=== PATIENT | male | born 1950 | race Caucasian/White ===

== ENCOUNTER 2016-08-28 23:55 | Inpatient (IN) | payer MEDICARE ==
[~2016-08-28] VITALS: Ht 172.7 cm; Wt 94.8 kg
[~2016-08-28 23:55] MED LIST: ASPI325T24 PO; CENTCHW3; FISH100020 PO
[2016-08-29] VITALS (23 sets, daily range): BP systolic 107–165; BP diastolic 61–84; PULSE 80–124; RESP 23–35; TEMP 98.2–99.3; O2SAT 72–99
[2016-08-29] MEDS ORDERED: AZITHROMYCIN INJ 500 MG in SODIUM CHLOR 0.9% 250 ML INJ 250 ML IV ONE (00:15)
[2016-08-29] MEDS ORDERED: SODIUM CHLOR 0.9% 1000 ML INJ 1,000 ML IV ONE (00:15)
[2016-08-29] MEDS ORDERED: cefTRIAXone INJ 1,000 MG in SODIUM CHLORIDE 0.9% INJ 100 ML IV ONE (00:15)
[2016-08-29] MEDS ORDERED: ASPI81CH CHEW (00:23)
[2016-08-29] MEDS ORDERED: LOVA20TA PO (00:23)
[2016-08-29] MEDS ORDERED: BUME0.5T PO (00:24)
--- NOTE | 2016-08-29 00:35 | PD ---
HPI Chief Complaint: Respiratory Distress Time Seen by Provider: 00:08 Travel History International Travel<30 days: No Contact w/Intl Traveler<30days: No Traveled to known affect area: No History of Present Illness HPI Patient is a 66-year-old male of CP, non-Hodgkin lymphoma, hypertension, hyperlipidemia, presents to emergency room from home for evaluation of acute urinary retention as well as shortness of breath. Patient reports that he has not urinated all day today, reports that his bladder is full, reports concerns for urinary retention. Patient reports that he has been feeling short of breath and has been coughing intermittently. Reports that he feels as if his symptoms are worse today. Patient reports that when he coughs, he brings up thick green sputum. Patient denies chest pain, reports no sick contacts. Patient reports that "my lungs are bad" - reports that he has hx of lung disease after he had chemotherapy tx for his NHL As per EMS, patient reports that when they first arrived on scene, patient's pulse ox was 60% on room air. Patient was given 125 mg of Solu-Medrol as well as to approach treatments, pulse ox upon arrival to the emergency room was 72% on room air. PFSH Past Medical History Hx Anticoagulant Therapy: Yes (PLAVIX) Cancer: Yes (HX.[id number]) Cerebral Palsy: Yes Musculoskeletal: Yes Pneumonia: Yes Social History Alcohol Use: Yes (RARE) Tobacco Use: No Substance Use: No Allergies-Medications (Allergen,Severity, Reaction): Coded Allergies: No Known Allergies (Verified , 08/29/16) Reported Meds & Prescriptions Reported Meds & Active Scripts Active Reported Bumetanide 0.5 Mg Tab 0.5 Mg PO BID Lovastatin 20 Mg Tab 20 Mg PO DAILY Aspirin 81 Mg Chew 81 Mg CHEW DAILY Review of Systems General / Constitutional: No: Fever Eyes: No: Visual changes HENT: No: Headaches Cardiovascular: No: Chest Pain or Discomfort Respiratory: Positive: Cough, Shortness of Breath, Wheezing Gastrointestinal: No: Abdominal Pain Genitourinary: Positive: Other (urinary retention), No: Dysuria Musculoskeletal: No: Pain Skin: No Rash Neurologic: No: Weakness Psychiatric: No: Depression Endocrine: No: Polydipsia Hematologic/Lymphatic: No: Easy Bruising Physical Exam Narrative GENERAL: Toxic appearing SKIN: Warm and dry. HEAD: Atraumatic. Normocephalic. EYES: Pupils equal and round. No scleral icterus. No injection or drainage. ENT: No nasal bleeding or discharge. Mucous membranes pink and moist. NECK: Trachea midline. No JVD. CARDIOVASCULAR: Tachycardic, No murmur appreciated. RESPIRATORY: Patient with increased accessory muscle use. Patient with rails to lung bases GASTROINTESTINAL: Abdomen soft, non-tender, nondistended. Hepatic and splenic margins not palpable. MUSCULOSKELETAL: No obvious deformities. No clubbing. No cyanosis. Patient with +3 edema to lower extremity as bilaterally NEUROLOGICAL: Awake and alert. No obvious cranial nerve deficits. Normal speech. PSYCHIATRIC: Appropriate mood and affect; insight and judgment normal. Data Data Last Documented VS Vital Signs Date Time Temp Pulse Resp B/P Pulse Ox O2 Delivery O2 Flow Rate FiO2 08/29/16 01:20 97 35 08/29/16 00:11 117 30 Non-Rebreather 15 08/29/16 00:03 98.2 165/81 Orders Complete Blood Count With Diff (08/29/16 00:08) Comprehensive Metabolic Panel (08/29/16 00:08) Prothrombin Time / Inr (Pt) (08/29/16 00:08) Act Partial Throm Time (Ptt) (08/29/16 00:08) Lactic Acid Sepsis Protocol (08/29/16 00:08) Magnesium (Mg) (08/29/16 00:08) Lipase (08/29/16 00:08) Ckmb (Isoenzyme) Profile (08/29/16 00:08) Troponin I (08/29/16 00:08) Urinalysis - C+S If Indicated (08/29/16 00:08) Influenzae A/B Antigen (08/29/16 00:08) Blood Culture (08/29/16 00:08) Chest, Single Ap (08/29/16 00:08) Arterial Blood Gas (Abg) (08/29/16 00:08) Blood Glucose (08/29/16 00:08) Ecg Monitoring (08/29/16 00:08) Iv Access Insert/Monitor (08/29/16 00:08) Oximetry (08/29/16 00:08) Oxygen Administration (08/29/16 00:08) Urinary Catheter Insert/Apply (08/29/16 00:08) Azithromycin Inj (Zithromax Inj) (08/29/16 00:15) Ceftriaxone Inj (Rocephin Inj) (08/29/16 00:15) Sodium Chlor 0.9% 1000 Ml Inj (Ns 1000 M (08/29/16 00:15) Blood Culture (08/29/16 00:10) Us Leg Venous Doppler Bilat (08/29/16 ) Ct Pulmonary Angiogram (08/29/16 00:29) Furosemide Inj (Lasix Inj) (08/29/16 01:15) B-Type Natriuretic Peptide (08/29/16 01:08) Resp Bipap / Cpap Non Invas Vt (08/29/16 ) Iohexol 350 Inj (Omnipaque 350 Inj) (08/29/16 01:58) Vital Signs (Adult) RAYMON.Q4H (08/29/16 02:32) Activity Bed Rest (08/29/16 02:32) Basic Metabolic Panel (Bmp) (08/29/16 08:00) Labs Laboratory Tests Test 08/29/16 08/29/16 00:00 00:50 White Blood Count 18.9 TH/MM3 Red Blood Count 6.24 MIL/MM3 Hemoglobin 12.2 GM/DL Hematocrit 40.7 % Mean Corpuscular Volume 65.2 FL Mean Corpuscular Hemoglobin 19.6 PG Mean Corpuscular Hemoglobin 30.1 % Concent Red Cell Distribution Width 18.9 % Platelet Count 300 TH/MM3 Mean Platelet Volume 8.5 FL Neutrophils (%) (Auto) 88.9 % Lymphocytes (%) (Auto) 5.0 % Monocytes (%) (Auto) 5.7 % Eosinophils (%) (Auto) 0.0 % Basophils (%) (Auto) 0.4 % Neutrophils # (Auto) 16.8 TH/MM3 Lymphocytes # (Auto) 0.9 TH/MM3 Monocytes # (Auto) 1.1 TH/MM3 Eosinophils # (Auto) 0.0 TH/MM3 Basophils # (Auto) 0.1 TH/MM3 CBC Comment AUTO DIFF Differential Comment AUTO DIFF CONFIRMED Platelet Estimate NORMAL Platelet Morphology Comment ENLARGED Acanthocytes OCC Prothrombin Time 13.3 SEC Prothromb Time International 1.2 RATIO Ratio Activated Partial 27.9 SEC Thromboplast Time Sodium Level 141 MEQ/L Potassium Level 3.6 MEQ/L Chloride Level 103 MEQ/L Carbon Dioxide Level 24.6 MEQ/L Anion Gap 13 MEQ/L Blood Urea Nitrogen 21 MG/DL Creatinine 1.21 MG/DL Estimat Glomerular Filtration 60 ML/MIN Rate Random Glucose 119 MG/DL Lactic Acid Level 2.7 mmol/L Calcium Level 8.9 MG/DL Magnesium Level 2.2 MG/DL Total Bilirubin 1.2 MG/DL Aspartate Amino Transf 9 U/L (AST/SGOT) Alanine Aminotransferase 20 U/L (ALT/SGPT) Alkaline Phosphatase 110 U/L Total Creatine Kinase 39 U/L Troponin I 0.04 NG/ML B-Type Natriuretic Peptide 471 PG/ML Total Protein 8.0 GM/DL Albumin 3.6 GM/DL Lipase 197 U/L Blood Gas Puncture Site RT BRACHIAL Blood Gas Patient Temperature 98.6 Blood Gas HCO3 23 mmol/L Blood Gas Base Excess -0.8 mmol/L Blood Gas Oxygen Saturation 68 % Arterial Blood pH 7.45 Arterial Blood Partial 34 mmHg Pressure CO2 Arterial Blood Partial 38 mmHG Pressure O2 Arterial Blood Oxygen Content 11.3 Vol % Arterial Blood 2.2 % Carboxyhemoglobin Arterial Blood Methemoglobin 0.7 % Blood Gas Hemoglobin 11.9 G/DL Oxygen Delivery Device ROOMAIR Blood Gas Inspired Oxygen 21 % MDM Medical Decision Making Medical Screen Exam Complete: Yes Emergency Medical Condition: Yes Interpretation(s) Vital Signs Date Time Temp Pulse Resp B/P Pulse Ox O2 Delivery O2 Flow Rate FiO2 08/29/16 00:11 117 30 100 Non-Rebreather 15 08/29/16 00:03 98.2 121 30 165/81 72 Differential Diagnosis Pneumonia, CHF, influenza, ACS, arrhythmia, PE, DVT, pneumothorax Narrative Course Patient is a 66-year-old male who was brought to the emergency room from home by [facility] for evaluation of shortness of breath with a pulse ox of 60% on room air as well as for evaluation of acute urinary retention. EMS reports the patient had been complaining of acute urinary retention for the past 2 days, she reports that he has not been able to urinate for the past day. Jenkins catheter ordered Patient with improved symptoms on BiPAP. Chest CHF versus infiltrates. Patient with most likely CHF, Lasix 80 mg order. CBC & BMP Diagram 08/29/16 00:00 Laboratory Tests Test 08/29/16 08/29/16 00:00 00:50 White Blood Count 18.9 TH/MM3 (4.0-11.0) Red Blood Count 6.24 MIL/MM3 (4.50-5.90) Hemoglobin 12.2 GM/DL (13.0-17.0) Hematocrit 40.7 % (39.0-51.0) Mean Corpuscular Volume 65.2 FL (80.0-100.0) Mean Corpuscular Hemoglobin 19.6 PG (27.0-34.0) Mean Corpuscular Hemoglobin 30.1 % Concent (32.0-36.0) Red Cell Distribution Width 18.9 % (11.6-17.2) Platelet Count 300 TH/MM3 (150-450) Mean Platelet Volume 8.5 FL (7.0-11.0) Neutrophils (%) (Auto) 88.9 % (16.0-70.0) Lymphocytes (%) (Auto) 5.0 % (9.0-44.0) Monocytes (%) (Auto) 5.7 % (0.0-8.0) Eosinophils (%) (Auto) 0.0 % (0.0-4.0) Basophils (%) (Auto) 0.4 % (0.0-2.0) Neutrophils # (Auto) 16.8 TH/MM3 (1.8-7.7) Lymphocytes # (Auto) 0.9 TH/MM3 (1.0-4.8) Monocytes # (Auto) 1.1 TH/MM3 (0-0.9) Eosinophils # (Auto) 0.0 TH/MM3 (0-0.4) Basophils # (Auto) 0.1 TH/MM3 (0-0.2) CBC Comment AUTO DIFF Differential Comment AUTO DIFF CONFIRMED Platelet Estimate NORMAL (NORMAL) Platelet Morphology Comment ENLARGED (NORMAL) Acanthocytes OCC (NORMAL) Prothrombin Time 13.3 SEC (9.8-11.6) Prothromb Time International 1.2 RATIO Ratio Activated Partial 27.9 SEC Thromboplast Time (24.3-30.1) Sodium Level 141 MEQ/L (136-145) Potassium Level 3.6 MEQ/L (3.5-5.1) Chloride Level 103 MEQ/L (98-107) Carbon Dioxide Level 24.6 MEQ/L (21.0-32.0) Anion Gap 13 MEQ/L (5-15) Blood Urea Nitrogen 21 MG/DL (7-18) Creatinine 1.21 MG/DL (0.60-1.30) Estimat Glomerular Filtration 60 ML/MIN (>89) Rate Random Glucose 119 MG/DL (74-106) Lactic Acid Level 2.7 mmol/L (0.4-2.0) Calcium Level 8.9 MG/DL (8.5-10.1) Magnesium Level 2.2 MG/DL (1.5-2.5) Total Bilirubin 1.2 MG/DL (0.2-1.0) Aspartate Amino Transf 9 U/L (15-37) (AST/SGOT) Alanine Aminotransferase 20 U/L (12-78) (ALT/SGPT) Alkaline Phosphatase 110 U/L (45-117) Total Creatine Kinase 39 U/L (39-308) Troponin I 0.04 NG/ML (0.02-0.05) B-Type Natriuretic Peptide 471 PG/ML (0-100) Total Protein 8.0 GM/DL (6.4-8.2) Albumin 3.6 GM/DL (3.4-5.0) Lipase 197 U/L (73-393) Blood Gas Puncture Site RT BRACHIAL Blood Gas Patient Temperature 98.6 Blood Gas HCO3 23 mmol/L (22-26) Blood Gas Base Excess -0.8 mmol/L (-2-2) Blood Gas Oxygen Saturation 68 % (90-100) Arterial Blood pH 7.45 (7.380-7.420) Arterial Blood Partial 34 mmHg (38-42) Pressure CO2 Arterial Blood Partial 38 mmHG Pressure O2 (61-120) Arterial Blood Oxygen Content 11.3 Vol % (12.0-20.0) Arterial Blood 2.2 % (0-4) Carboxyhemoglobin Arterial Blood Methemoglobin 0.7 % (0-2) Blood Gas Hemoglobin 11.9 G/DL (12.0-16.0) Oxygen Delivery Device ROOMAIR Blood Gas Inspired Oxygen 21 % Microbiology Date/Time Procedure Status Source Growth 08/29/16 00:00 Aerobic Blood Culture Received Blood Peripheral Pending 08/29/16 00:00 Anaerobic Blood Culture Received Blood Peripheral Pending 08/29/16 00:10 Aerobic Blood Culture Received Blood Peripheral Pending 08/29/16 00:10 Anaerobic Blood Culture Received Blood Peripheral Pending 08/29/16 00:30 Influenza Types A,B Antigen ([facility]) - Final Complete Nasal Aspirate NEGATIVE FOR FLU A AND B ANTIGEN.... Last Impressions Chest X-Ray 08/29/16 0008 Signed Impressions: Service Date/Time: Monday, August 29, 2016 00:15 - CONCLUSION: 1. Bilateral airspace consolidation especially basilar and perihilar. Differential diagnosis includes pneumonia and edema. No prior study for comparison. Hawk Roe MD Lower Extremity Ultrasound 08/29/16 0000 Signed Impressions: Service Date/Time: Monday, August 29, 2016 01:11 - CONCLUSION: Normal examination. Hawk Roe MD Patient CT of the chest shows no pulmonary embolism, he has have moderate severe pulmonary fibrosis, characteristic of decidual pneumonitis. I did review all findings with patient in detail. I discussed need for admission to the hospital. Patient is feeling much better on the BiPAP. Case is reviewed with Dr. mcneil who accepts patient to service. Critical Care Narrative Aggregate critical care time was 45 minutes. Time to perform other separately billable procedures was not included in the critical care time. My time did not include minutes spent treating any other patients simultaneously or on activities that did not directly contribute to the patient's treatment. The services I provided to this patient were to treat and/or prevent clinically significant deterioration that could result in: , decompensation, deterioration I provided critical care services requiring my management, as noted below: Chart data review, documentation time, medication orders and management, vital sign assessments/reviewing monitor data, ordering and reviewing lab tests, ordering and interpreting/reviewing x-rays and diagnostic studies, care of the patient and discussion of the patient with the admitting physicians. Diagnosis Primary Impression: Hypoxia Additional Impressions: Sepsis Qualified Code: A41.9 - Sepsis, due to unspecified organism Acute exacerbation of CHF (congestive heart failure) Qualified Code: I50.9 - Acute on chronic congestive heart failure, unspecified congestive heart failure type Admitting Information Admitting Physician Requests: Admit Patricia Mcdermott DO Aug 29, 2016 00:35
[2016-08-29 00:41] LABS: AUTOMATED NEUTROPHIL # 16.8 TH/MM3 (1.8-7.7); BASOPHIL # 0.1 TH/MM3 (0-0.2); BASOPHIL % 0.4 % (0.0-2.0); HEMATOCRIT 40.7 % (39.0-51.0); LYMPHOCYTE # 0.9 TH/MM3 (1.0-4.8); MEAN CELL VOLUME 65.2 FL (80.0-100.0); MEAN CORPUSCULAR HEMOGLOBIN 19.6 PG (27.0-34.0); MEAN CORPUSCULAR HGB CONC 30.1 % (32.0-36.0); MONO % 5.7 % (0.0-8.0); NEUT % 88.9 % (16.0-70.0); PLATELET COUNT 300 TH/MM3 (150-450); RED BLOOD COUNT 6.24 MIL/MM3 (4.50-5.90); RED CELL DISTRIBUTION WIDTH 18.9 % (11.6-17.2); WHITE BLOOD COUNT 18.9 TH/MM3 (4.0-11.0)
[2016-08-29 00:43] LABS: HEMO FLAGS AUTO DIFF
--- NOTE | 2016-08-29 00:48 | RADRPT ---
EXAM DATE/TIME: 08/29/2016 00:15 [facility] COMPARISON: No previous studies available for comparison. INDICATIONS : Shortness of breath. MEDICAL HISTORY : Cerebral palsy. Hodgkins lymphoma. SURGICAL HISTORY : None. ENCOUNTER: Initial ACUITY: 1 day PAIN SCORE: 0/10 LOCATION: Bilateral chest FINDINGS: No prior study for comparison. There is bilateral airspace disease status in the perihilar regions an d lung bases. Heart size appears enlarged. No pneumothorax. Probable small effusions. CONCLUSION: 1. Bilateral airspace consolidation especially basilar and perihilar. Differential diagnosis includes pneumonia and edema. No prior study for comparison. Hawk Roe MD on August 29, 2016 at 0:45 Board Certified Radiologist. This report was verified electronically.
[2016-08-29 00:54] LABS: APTT (PATIENT) 27.9 SEC (24.3-30.1); INTERNATIONAL NORMALIZED RATIO 1.2 RATIO; PROTHROMBIN TIME - PATIENT 13.3 SEC (9.8-11.6)
[2016-08-29 00:58] LABS: ALT (GPT) 20 U/L (12-78); ANION GAP 13 MEQ/L (5-15); AST (GOT) 9 U/L (15-37); BICARBONATE 24.6 MEQ/L (21.0-32.0); BLOOD UREA NITROGEN 21 MG/DL (7-18); CHLORIDE 103 MEQ/L (98-107); GLOMERULAR FILTRATION RATE 60 ML/MIN (>89); MAGNESIUM 2.2 MG/DL (1.5-2.5); POTASSIUM 3.6 MEQ/L (3.5-5.1); SODIUM (NA) 141 MEQ/L (136-145)
[2016-08-29 01:00] LABS: BLOOD GAS BASE EXCESS -0.8 mmol/L (-2-2); BLOOD GAS CARBOXYHEMOGLOBIN 2.2 % (0-4); BLOOD GAS HCO3 23 mmol/L (22-26); BLOOD GAS METHEMOGLOBIN 0.7 % (0-2); BLOOD GAS O2 HGB SATURATION 68 % (90-100); BLOOD GAS OXYGEN CONTENT 11.3 Vol % (12.0-20.0); BLOOD GAS PCO2 34 mmHg (38-42); BLOOD GAS PO2 38 mmHG (61-120); BLOOD GAS TOTAL HGB 11.9 G/DL (12.0-16.0); TEMP CORR TO 98.6
[2016-08-29 01:01] LABS: CRITICAL VALUE YES; DRAW SITE RT BRACHIAL; FIO2 21 %; NUMBER OF ARTERIAL PUNCTURES 2; OXYGEN DEVICE ROOMAIR
[2016-08-29 01:02] LABS: ALKALINE PHOSPHATASE 110 U/L (45-117); TOTAL BILIRUBIN ADULT 1.2 MG/DL (0.2-1.0)
[2016-08-29 01:02] LABS: STAT YES
[2016-08-29 01:05] LABS: CREATINE KINASE 39 U/L (39-308)
[2016-08-29 01:07] LABS: ACANTHOCYTES OCC (NORMAL); PLATELET ESTIMATE SMEAR NORMAL (NORMAL); SCAN/DIFF AUTO DIFF CONFIRMED
[2016-08-29 01:08] LABS: PLATELET MORPHOLOGY ENLARGED (NORMAL)
[2016-08-29] MEDS ORDERED: FUROSEMIDE 100 MG/10 ML VIAL IV PUSH ONE (01:15)
--- NOTE | 2016-08-29 01:45 | RADRPT ---
EXAM DATE/TIME: 08/29/2016 01:11 [facility] COMPARISON: No previous studies available for comparison. INDICATIONS : Bilateral leg swelling. MEDICAL HISTORY : Cerebral palsy. Anticoagulant therapy. Hdgkin's lymphoma. SURGICAL HISTORY : Leg surgery as child. ENCOUNTER: Initial ACUITY: 1 day PAIN SCORE: 0/10 LOCATION: Bilateral legs. TECHNIQUE: Venous ultrasound of the left and right leg was performed from the inguinal ligament to the proximal calf. Real-time, color Doppler and spectral tracing, compression and augmentation techniques were us ed. FINDINGS: RIGHT LEG: There is normal compressibility of the deep venous system from the inguinal region to the proximal ca lf. No echogenic clot is seen in the lumen of the common femoral, femoral, popliteal, and posterior tibial veins. There is a normal response of the venous system to proximal and distal augmentation an d respiration. LEFT LEG: There is normal compressibility of the deep venous system from the inguinal region to the proximal ca lf. No echogenic clot is seen in the lumen of the common femoral, femoral, popliteal, and posterior tibial veins. There is a normal response of the venous system to proximal and distal augmentation an d respiration. CONCLUSION: Normal examination. Hawk Roe MD on August 29, 2016 at 1:43 Board Certified Radiologist. This report was verified electronically.
[2016-08-29] MEDS ORDERED: IOHEXOL 350 MG/ML 10 ML VIAL (for RAD DIAG) IV ONE (01:58)
--- NOTE | 2016-08-29 02:28 | RADRPT ---
EXAM DATE/TIME: 08/29/2016 01:39 [facility] COMPARISON: CHEST SINGLE AP, August 29, 2016, 0:15. INDICATIONS : Short of breath IV CONTRAST: 64 cc Omnipaque 350 (iohexol) IV RADIATION DOSE: 24.55 CTDIvol (mGy) MEDICAL HISTORY : Non hodgkins lymphoma. Cerebral palsy. SURGICAL HISTORY : None. ENCOUNTER: Initial ACUITY: 1 day PAIN SCALE: 5/10 LOCATION: Bilateral chest TECHNIQUE: Volumetric scanning of the chest was performed using a pulmonary embolism protocol MIP images were re constructed. Using automated exposure control and adjustment of the mA and/or kV according to patien t size, radiation dose was kept as low as reasonably achievable to obtain optimal diagnostic quality images. FINDINGS: No filling defects identified to suggest pulmonary embolic disease. Lung findings are characteristic of moderate to severe pulmonary fibrosis. The fibrosis is most severe at the lung bases and in the aranda bpleural regions. There is honeycombing, especially at the lung bases and multiple areas of traction bronchiectasis and traction bronchiolectasis. CT findings are characteristic of usual interstitial pn eumonitis. There is a spiculated 2 cm nodule in the posterior segment right upper lobe. There are lung kristan a round this nodule. It is unclear if this represents scarring or a neoplastic change. There are no prosper or studies for comparison. Further workup recommended to include comparison with old films or PET sca n. There is enlargement of the main pulmonary artery to 5.6 cm and enlarged left pulmonary characteristi c of pulmonary care hypertension likely related to long-standing pulmonary fibrosis. Severe coronary calcifications present. No acute findings in the upper abdomen. Elevated right hemidiaphragm. CONCLUSION: 1. Negative for pulmonary embolus. 2. Moderate to severe pulmonary fibrosis with findings characteristic of usual interstitial pneumonit is. 3. Spiculated 2 cm nodule posterior segment right upper lobe with associated surrounding lung kristan . Differential diagnosis includes postsurgical change versus lung neoplasm. Recommend comparison with prior studies or further evaluation with PET scan. 4. Enlarged central pulmonary arteries characteristic of pulmonary hypertension. Hawk Roe MD on August 29, 2016 at 2:19 Board Certified Radiologist. This report was verified electronically.
[2016-08-29 02:36] LABS: LACTIC ACID GHOST NOT REPORTABLE
[2016-08-29 02:40] LABS: MEAN CORPUSCULAR HGB CONC 29.7 % (32.0-36.0)
[2016-08-29] MEDS ORDERED: AZITHROMYCIN INJ 500 MG in SODIUM CHLOR 0.9% 250 ML INJ 250 ML IV SCH (03:00)
[2016-08-29] MEDS: ENOXAPARIN SODIUM 40 MG/0.4 ML SYRINGE SQ SCH (06:06)
[2016-08-29 06:49] LABS: BLOOD, URINE NEG (NEG); COMMENT (UR) CATH-CULT NOT IND; CULTURE IF INDICATED CATH CULTURE NOT IND; GLUCOSE,URINE NEG (NEG); KETONE, URINE NEG (NEG); NITRITE,URINE NEG (NEG); SQUAMOUS EPITHELIAL CELL URINE <1 /hpf (0-5); URINE COLOR YELLOW (YELLW/STRAW)
[2016-08-29] MEDS: ASPIRIN EC 81 MG TABEC PO SCH (08:22)
[2016-08-29] MEDS: FUROSEMIDE 40 MG/4 ML VIAL IV PUSH SCH ×2 (08:22→17:59)
--- NOTE | 2016-08-29 09:08 | RADRPT ---
EXAM DATE/TIME: 08/29/2016 08:53 [facility] COMPARISON: No previous studies available for comparison. INDICATIONS : Short of breath. MEDICAL HISTORY : Cerebral palsy. Anticoagulant therapy. Hdgkin's lymphoma. SURGICAL HISTORY : Leg surgery as child. ENCOUNTER: Subsequent ACUITY: 2 days PAIN SCORE: 0/10 LOCATION: chest FINDINGS: The heart size is enlarged. The lungs demonstrate diffuse increased parenchymal markings. There is el evation of the right hemidiaphragm. A significant effusion is not seen. CONCLUSION: Cardiomegaly with diffuse increased parenchymal markings consistent with CHF which is unchanged from the prior exam. Jimenez Abarca MD on August 29, 2016 at 9:05 Board Certified Radiologist. This report was verified electronically.
[2016-08-29 10:28] LABS: AUTOMATED NEUTROPHIL # 14.9 TH/MM3 (1.8-7.7); BASOPHIL # 0.1 TH/MM3 (0-0.2); BASOPHIL % 0.6 % (0.0-2.0); HEMATOCRIT 37.5 % (39.0-51.0); LYMPH % 2.9 % (9.0-44.0); LYMPHOCYTE # 0.5 TH/MM3 (1.0-4.8); MEAN CELL VOLUME 64.5 FL (80.0-100.0); MEAN CORPUSCULAR HEMOGLOBIN 19.2 PG (27.0-34.0); MONO % 1.5 % (0.0-8.0); PLATELET COUNT 262 TH/MM3 (150-450); RED CELL DISTRIBUTION WIDTH 19.5 % (11.6-17.2); WHITE BLOOD COUNT 15.7 TH/MM3 (4.0-11.0)
[2016-08-29 10:30] LABS: HEMO FLAGS AUTO DIFF
[2016-08-29 10:49] LABS: BICARBONATE 27.4 MEQ/L (21.0-32.0); POTASSIUM 3.7 MEQ/L (3.5-5.1)
[2016-08-29 11:25] LABS: ACANTHOCYTES OCC (NORMAL); KERATOCYTES OCC (NORMAL)
[2016-08-29 11:26] LABS: HELMET CELLS OCC (NORMAL); PLATELET ESTIMATE SMEAR NORMAL (NORMAL); PLATELET MORPHOLOGY ENLARGED (NORMAL); SCAN/DIFF AUTO DIFF CONFIRMED
--- NOTE | 2016-08-29 11:35 | HHI.HP ---
HPI Service [facility] Hospitalists Primary Care Physician Heidi Gipson MD Admission Diagnosis Sepsis, Hypoxia, Pneumonia Chief Complaint: SOB Travel History International Travel<30 Days: No Contact w/Intl Traveler <30 Da: No Traveled to Known Affected Are: No History of Present Illness Mr. Singer is a 66 y/o male with cerebral palsy, hx of non-Hodgkin lymphoma s /p chemo in 1987, hypertension, and hyperlipidemia. He presents to emergency room from home for evaluation of acute urinary retention as well as shortness of breath. Patient reportedly had not urinated all day prior to arrival in the ED and he had a Jenkins cath placed in the ED. Patient also reported that he has been feeling short of breath and has been coughing intermittently which seemed to be worse yesterday. Patient reports that when he coughs, he brings up thick green sputum. Patient denies chest pain, reports no sick contacts. Patient reports that he has hx of lung disease after he had chemotherapy tx for his NHL. According to the ER notes, when EMS first arrived on scene, patient's pulse ox was 60% on room air. Patient was given 125 mg of Solu-Medrol as well as to breathing treatments, and pulse ox upon arrival to the emergency room was 72% on room air. Patient was placed on BiPAP with improvement in his SOB. CXR in the ED indicated bilateral airspace consolidation especially basilar and perihilar, ddx of infiltrate vs. edema. Patient was given Lasix 80 mg IV x one dose and Azithromycin and Ceftriaxone IV in the ED. CTA was negative for pulmonary embolus but noted moderate to severe pulmonary fibrosis with findings characteristic of usual interstitial pneumonitis, spiculated 2 cm nodule posterior segment right upper lobe with associated surrounding lung kristan and enlarged central pulmonary arteries characteristic of pulmonary hypertension. Pts WBC count at admission was elevated at 18.9. Blood cultures were drawn prior to antibiotics being given and are pending. Review of Systems Constitutional: DENIES: Fever, Weight loss, Chills, Night Sweats Eyes: DENIES: Vision loss Respiratory: COMPLAINS OF: Cough, Sputum production, Shortness of breath Cardiovascular: DENIES: Chest pain, Palpitations, Lower Extremity Edema Gastrointestinal: DENIES: Abdominal pain, Black stools, Bloody stools, Nausea, Vomiting Genitourinary: DENIES: Hematuria, Dysuria Musculoskeletal: DENIES: Back pain, Neck pain Integumentary: DENIES: Rash Neurologic: DENIES: Abnormal gait, Headache, Localized weakness Psychiatric: DENIES: Confusion Other Urinary retention Past Family Social History Past Medical History Cerebral palsy Non-Hodgkin's lymphoma, dx in 1987 s/p chemo HTN Hyperlipidemia Past Surgical History Multiple surgery to LE for his CP Reported Medications Bumetanide 0.5 Mg Tab 0.5 Mg PO BID Lovastatin 20 Mg Tab 20 Mg PO DAILY Aspirin 81 Mg Chew 81 Mg CHEW DAILY Allergies: Coded Allergies: No Known Allergies (Verified , 08/29/16) Family History Noncontributory Social History Denies any tobacco, alcohol or illicit drug use Physical Exam Vital Signs Vital Signs Date Time Temp Pulse Resp B/P Pulse Ox O2 Delivery O2 Flow Rate FiO2 08/29/16 08:10 98 Non-Rebreather 15.00 08/29/16 06:20 94 40 08/29/16 06:10 98.4 93 24 118/75 93 08/29/16 05:40 94 29 114/66 98 BiPAP 40 08/29/16 03:50 97 40 08/29/16 02:56 107 29 117/61 98 BiPAP 40 08/29/16 01:30 40 08/29/16 01:20 97 35 08/29/16 00:11 117 30 100 Non-Rebreather 15 08/29/16 00:09 72 Non-Rebreather 15 08/29/16 00:09 72 Non-Rebreather 15.00 08/29/16 00:03 98.2 121 30 165/81 72 Physical Exam GENERAL: This is a well-nourished, well-developed patient, in no apparent distress. HEENT: Atraumatic. Normocephalic. No temporal or scalp tenderness. No scleral icterus. Airway patent. NECK: Trachea midline, supple, nontender. CARDIO: Regular. RESP: Poor air movement bilaterally. Rhonchi throughout. Pt is on BiPAP ABD: +BS, soft, non-tender, nondistended. EXT: Extremities without clubbing, cyanosis, or edema. NEURO: Awake and alert. Motor and sensory grossly within normal limits. Normal speech. Laboratory Laboratory Tests Test 08/29/16 08/29/16 08/29/16 08/29/16 00:00 00:50 03:20 10:00 White Blood Count 18.9 15.7 Red Blood Count 6.24 5.80 Hemoglobin 12.2 11.1 Hematocrit 40.7 37.5 Mean Corpuscular Volume 65.2 64.5 Mean Corpuscular Hemoglobin 19.6 19.2 Mean Corpuscular Hemoglobin 30.1 29.7 Concent Red Cell Distribution Width 18.9 19.5 Platelet Count 300 262 Mean Platelet Volume 8.5 8.5 Neutrophils (%) (Auto) 88.9 95.0 Lymphocytes (%) (Auto) 5.0 2.9 Monocytes (%) (Auto) 5.7 1.5 Eosinophils (%) (Auto) 0.0 0.0 Basophils (%) (Auto) 0.4 0.6 Neutrophils # (Auto) 16.8 14.9 Lymphocytes # (Auto) 0.9 0.5 Monocytes # (Auto) 1.1 0.2 Eosinophils # (Auto) 0.0 0.0 Basophils # (Auto) 0.1 0.1 CBC Comment AUTO DIFF AUTO DIFF Differential Comment AUTO DIFF CONFIRMED Platelet Estimate NORMAL Platelet Morphology Comment ENLARGED Acanthocytes OCC Prothrombin Time 13.3 Prothromb Time International 1.2 Ratio Activated Partial 27.9 Thromboplast Time Urine Color YELLOW Urine Turbidity CLEAR Urine pH 5.0 Urine Specific [place] 1.021 Urine Protein TRACE Urine Glucose (UA) NEG Urine Ketones NEG Urine Occult Blood NEG Urine Nitrite NEG Urine Bilirubin NEG Urine Urobilinogen LESS THAN 2.0 Urine Leukocyte Esterase NEG Urine RBC 3 Urine WBC LESS THAN 1 Urine Squamous Epithelial <1 Cells Microscopic Urinalysis Comment CATH-CULT NOT IND Sodium Level 141 Potassium Level 3.6 Chloride Level 103 Carbon Dioxide Level 24.6 Anion Gap 13 Blood Urea Nitrogen 21 Creatinine 1.21 Estimat Glomerular Filtration 60 Rate Random Glucose 119 Lactic Acid Level 2.7 1.8 1.6 Calcium Level 8.9 Magnesium Level 2.2 Total Bilirubin 1.2 Aspartate Amino Transf 9 (AST/SGOT) Alanine Aminotransferase 20 (ALT/SGPT) Alkaline Phosphatase 110 Total Creatine Kinase 39 Troponin I 0.04 B-Type Natriuretic Peptide 471 Total Protein 8.0 Albumin 3.6 Lipase 197 Blood Gas Puncture Site RT BRACHIAL Blood Gas Patient Temperature 98.6 Blood Gas HCO3 23 Blood Gas Base Excess -0.8 Blood Gas Oxygen Saturation 68 Arterial Blood pH 7.45 Arterial Blood Partial 34 Pressure CO2 Arterial Blood Partial 38 Pressure O2 Arterial Blood Oxygen Content 11.3 Arterial Blood 2.2 Carboxyhemoglobin Arterial Blood Methemoglobin 0.7 Blood Gas Hemoglobin 11.9 Oxygen Delivery Device ROOMAIR Blood Gas Inspired Oxygen 21 Date/Time Procedure Status Source Growth 08/29/16 10:00 Aerobic Blood Culture Received Blood Peripheral Pending 08/29/16 10:00 Anaerobic Blood Culture Received Blood Peripheral Pending 08/29/16 00:30 Influenza Types A,B Antigen (YU) - Final Complete Nasal Aspirate NEGATIVE FOR FLU A AND B ANTIGEN.... Result Diagram: 08/29/16 1000 08/29/16 0000 Imaging Last Impressions Chest X-Ray 08/29/16 0800 Signed Impressions: Service Date/Time: Monday, August 29, 2016 08:53 - CONCLUSION: Cardiomegaly with diffuse increased parenchymal markings consistent with CHF which is unchanged from the prior exam. Jimenez Abarca MD CT Angiography 08/29/16 0029 Signed Impressions: Service Date/Time: Monday, August 29, 2016 01:39 - CONCLUSION: 1. Negative for pulmonary embolus. 2. Moderate to severe pulmonary fibrosis with findings characteristic of usual interstitial pneumonitis. 3. Spiculated 2 cm nodule posterior segment right upper lobe with associated surrounding lung kristan. Differential diagnosis includes postsurgical change versus lung neoplasm. Recommend comparison with prior studies or further evaluation with PET scan. 4. Enlarged central pulmonary arteries characteristic of pulmonary hypertension. Hawk Roe MD Lower Extremity Ultrasound 08/29/16 0000 Signed Impressions: Service Date/Time: Monday, August 29, 2016 01:11 - CONCLUSION: Normal examination. Hawk Roe MD Septic Shock Reassessment Heart: Regular rate and rhythm Lungs: Course Skin: Warm Assessment and Plan Problem List: (1) Hypoxia Status: Acute Plan: - Pt presented to the ED on 08/29/16 for evaluation of acute urinary retention as well as shortness of breath. - Patient reported increased SOB and productive cough which seemed to be worse yesterday. - According to the ER notes, when EMS first arrived on scene, patient's pulse ox was 60% on room air. Patient was given 125 mg of Solu-Medrol as well as to breathing treatments, and pulse ox upon arrival to the emergency room was 72% on room air. Patient was placed on BiPAP with improvement in his SOB. He was weaned down to NRB but currently back in BiPAP. - CXR in the ED indicated bilateral airspace consolidation especially basilar and perihilar, ddx of infiltrate vs. edema. He was given Lasix 80 mg IV x one dose and Azithromycin and Ceftriaxone IV in the ED. - CTA was negative for pulmonary embolus but noted moderate to severe pulmonary fibrosis with findings characteristic of usual interstitial pneumonitis, spiculated 2 cm nodule posterior segment right upper lobe with associated surrounding lung kristan and enlarged central pulmonary arteries characteristic of pulmonary hypertension. - Pts WBC count at admission was elevated at 18.9. - Blood cultures were drawn prior to antibiotics being given and are pending. - Cont. Azithromycin and Ceftriaxone - Cont. Solu-Medrol 60mg Q6H - Duonebs Q4H WA - Consult Pulmonary medicine. - 2D echo is ordered - Pt will likely need an outpt PET/CT to further evaluate this nodule noted on CTA - DVT prophylaxis with Lovenox (2) Pulmonary fibrosis Status: Chronic Plan: - See above. (3) Lung nodule Status: Acute Plan: - See above. (4) Urinary retention Status: Acute Plan: - Pt has had new onset of urinary retention. - Jenkins cath placed in ED - Check CT Abd/pelvis - Consult Urology - Check PSA (5) Hx of non-Hodgkin's lymphoma Status: Resolved Plan: - Pt with a remote hx of Non-Hodgkin's lymphoma s/p chemo in 1987 and previously followed with Dr. Sotelo. (6) Hyperlipidemia Status: Chronic Plan: - Cont. home meds (7) HTN (hypertension) Status: Chronic Plan: - BP stable. Assessment and Plan Patient examined. Assessment and plan formulated with Patricia Trevino PA-C. I agree with the above. Physician Certification 2 Midnight Certification Type: Admission for Inpatient Services Order for Inpatient Services The services are ordered in accordance with Medicare regulations or non- Medicare payer requirements, as applicable. In the case of services not specified as inpatient-only, they are appropriately provided as inpatient services in accordance with the 2-midnight benchmark. Estimated LOS (days): 3 3 days is the estimated time the patient will need to remain in the hospital, assuming treatment plan goals are met and no additional complications. Post-Hospital Plan: Not yet determined Patricia Trevino Aug 29, 2016 11:35 Fredrick Valencia DO Aug 30, 2016 12:53
[2016-08-29] MEDS ORDERED: ONDANSETRON HCL 4 MG/2 ML VIAL IV PRN (11:45)
[2016-08-29] MEDS ORDERED: cloNIDine HCL 0.1 MG TAB PO PRN (11:45)
[2016-08-29] MEDS ORDERED: ACETAMINOPHEN 325 MG TAB PO PRN (11:45)
[2016-08-29] MEDS: RESP: ALBUTEROL 2.5 MG/IPRATROPIUM 0.5 MG NEB (SCH) NEB ×3 (11:57→20:11)
[2016-08-29] MEDS: methylPREDNISolone SOD SUCC 125 MG/2 ML VIAL IV PUSH SCH ×3 (13:55→22:49)
--- NOTE | 2016-08-29 15:17 | EC ---
Study Study Date:08/29/2016 STUDY CONCLUSIONS SUMMARY - Left ventricle: The cavity size was normal. Wall thickness was normal. Systolic function was mildly reduced. The estimated ejection fraction was in the range of 45% to 50%. Wall motion was normal; there were no regional wall motion abnormalities. - Mitral valve: Mild regurgitation. - Right ventricle: The cavity size was dilated. Wall thickness was normal. - Atrial septum: The septum bowed from right to left, consistent with increased right atrial pressure. - Pulmonary arteries: PA peak pressure: 43mm Hg (S). If LV function is below 40, please consider prescribing an ACEI or ARB or document rationale for non-use. PROCEDURE DATA STUDY STATUS: Elective. Procedure: Transthoracic echocardiography. Image quality was good. Scanning was performed from the parasternal, apical, and subcostal acoustic windows. Study completion: The patient tolerated the procedure well. Transthoracic echocardiography. M-mode, complete 2D, complete spectral Doppler, and color Doppler. Patient status: Inpatient. CARDIAC ANATOMY LEFT VENTRICLE: The cavity size was normal. Wall thickness was normal. Systolic function was mildly reduced. The estimated ejection fraction was in the range of 45% to 50%. Wall motion was normal; there were no regional wall motion abnormalities. AORTIC VALVE: Trileaflet; normal thickness leaflets. Doppler: Transvalvular velocity was within the normal range. There was no stenosis. No regurgitation. AORTA: Aortic root: The aortic root was normal in size. MITRAL VALVE: Structurally normal valve. Doppler: Transvalvular velocity was within the normal range. There was no evidence for stenosis. Mild regurgitation. LEFT ATRIUM: The atrium was normal in size. ATRIAL SEPTUM: The septum bowed from right to left, consistent with increased right atrial pressure. RIGHT VENTRICLE: The cavity size was dilated. Wall thickness was normal. PULMONIC VALVE: Doppler: Transvalvular velocity was within the normal range. There was no evidence for stenosis. No regurgitation. TRICUSPID VALVE: Structurally normal valve. Doppler: Transvalvular velocity was within the normal range. No regurgitation. PULMONARY ARTERY: The main pulmonary artery was normal-sized. Systolic pressure was within the normal range. RIGHT ATRIUM: The atrium was normal in size. PERICARDIUM: There was no pericardial effusion. SYSTEMIC VEINS: Inferior vena cava: The vessel was normal in size. BASIC MEASUREMENTS ADULT Normal Left ventricle LV internal dimension, ED, chordal level, 45.8 mm 43-52 PLAX LV internal dimension, ES, chordal level, *38.8 mm 23-38 PLAX Fractional shortening, chordal level, PLAX *15 % >29 LV posterior wall thickness, ED 12.9 mm IVS/LVPW ratio, ED 1.21 <1.3 Ventricular septum Septal thickness, ED 15.6 mm Aortic valve Leaflet separation 23 mm 15-26 Right ventricle RV internal dimension, ED, PLAX 33.5 mm 19-38 BASIC MEASUREMENTS ADULT Normal Aortic valve Leaflet separation 23 mm 15-26 Aorta Root diameter, ED 36 mm 20-37 Left atrium Anterior-posterior dimension, ES 34 mm 19-40 LA/aortic root ratio 0.94 DOPPLER MEASUREMENTS ADULT Normal Main pulmonary artery Pressure, S *43 mm Hg =30 Tricuspid valve Regurgitant peak velocity 286 cm/s Peak RV-RA gradient, S 33 mm Hg Systemic veins Estimated CVP 10 mm Hg Right ventricle RV pressure, S *43 mm Hg <30 LEGEND: Mean values are shown as u=mean value. Asterisk (*) duffy values outside specified normal range. Prepared and signed by Yogi Russell [id number]
--- NOTE | 2016-08-29 15:44 | EKG ---
Date Performed: 08/29/2016 Time Performed: 00:14:23 PTAGE: 66 years EKG: PROBABLE SINUS TACHYCARDIA ARTIFACT PROCLUDING ANY FURTHER INTERPRETATION. CONSIDER REPEAT EKG. PREVIOUS TRACING : 11/21/2008 15.34.34 DOCTOR: Regine Ryan Interpretating Date/Time 08/29/2016 15:44:11
--- NOTE | 2016-08-29 19:49 | PD.CONS ---
HPI Service Urology Consult Requested By Primary Care Physician Heidi Gipson MD Diagnosis: (1) Hypoxia ICD Code: R09.02 (2) Pulmonary fibrosis ICD Code: J84.10 (3) Lung nodule ICD Code: R91.1 (4) Urinary retention ICD Code: R33.9 (5) Hx of non-Hodgkin's lymphoma ICD Code: Z85.72 (6) Hyperlipidemia ICD Code: E78.5 (7) HTN (hypertension) ICD Code: I10 History of Present Illness 66yo male with cerebral palsy and history of HTN and nonhodgkin's lymphoma seen in consultation for urinary retention. Patient presented to ED with inability to void and respiratory distress with concern for PE. Patient reports he has never had an issues voiding prior to this. He is on Flomax and Finasteride. States he voids well with a strong stream, no straining, no dysuria. Reports nocturia of 1-2x per night. Denies hematuria. No fevers. Review of Systems ROS Limitations: Clinical Condition Constitutional: DENIES: Fever Endocrine: DENIES: Polyuria Eyes: DENIES: Blurred vision Ears, nose, mouth, throat: DENIES: Hearing loss Respiratory: COMPLAINS OF: Apneas Cardiovascular: DENIES: Chest pain Gastrointestinal: DENIES: Nausea, Vomiting Genitourinary: DENIES: Urinary frequency, Urinary incontinence Musculoskeletal: DENIES: Back pain Integumentary: DENIES: Abnormal pigmentation Hematologic/lymphatic: DENIES: Bruising Immunologic/allergic: DENIES: Eczema Neurologic: DENIES: Abnormal gait Psychiatric: DENIES: Anxiety Except as stated in HPI: all other systems reviewed are Neg Past Family Social History Past Medical History Cerebral palsy Non-Hodgkin's lymphoma, dx in 1987 s/p chemo HTN Hyperlipidemia Past Surgical History Multiple surgery to LE for his CP Reported Medications Reported Meds & Active Scripts Active Reported Bumetanide 0.5 Mg Tab 0.5 Mg PO BID Lovastatin 20 Mg Tab 20 Mg PO DAILY Aspirin 81 Mg Chew 81 Mg CHEW DAILY Allergies: Coded Allergies: No Known Allergies (Verified , 08/29/16) Active Ordered Medications Current Medications Medications (Trade) Dose Ordered Sig/Devyn Route Start Time Stop Time Status Last Admin (Rocephin Inj/NS Inj) 100 ml @ 200 mls/hr Q24H IV 08/30/16 01:00 Furosemide 40 mg 40 mg BID@09,18 IV PUSH 08/29/16 09:00 08/29/16 17:59 (Zithromax Inj/ NS 250 ml Inj) 250 ml @ 250 mls/hr Q24H IV 08/30/16 00:00 (Lovenox Inj) 40 mg Q24H SQ 08/29/16 06:00 08/29/16 06:06 (Ecotrin Ec) 81 mg DAILY PO 08/29/16 09:00 08/29/16 08:22 (SoluMEDROL INJ) 60 mg Q6HR IV PUSH 08/29/16 12:00 08/29/16 17:59 (Tylenol) 650 mg Q4H PRN PO 08/29/16 11:45 (Zofran Inj) 4 mg Q6H PRN IV 08/29/16 11:45 (Catapres) 0.1 mg Q6H PRN PO 08/29/16 11:45 (Flu (Quadrivalent) Vaccine Inj) 0.5 ml ONCE ONCE IM 08/30/16 10:00 08/30/16 10:01 Family History Family history reviewed and noncontributory to present illness Social History Denies any tobacco, alcohol or illicit drug use Physical Exam Vital Signs Date Time Temp Pulse Resp B/P Pulse Ox O2 Delivery O2 Flow Rate FiO2 08/29/16 18:00 124 08/29/16 16:50 96 40 08/29/16 16:00 123 08/29/16 16:00 98.6 123 35 157/84 99 08/29/16 14:00 98 08/29/16 13:00 100 08/29/16 12:00 98.2 100 23 108/67 96 08/29/16 12:00 100 08/29/16 11:49 95 40 08/29/16 11:00 98 08/29/16 10:00 80 08/29/16 08:10 98 Non-Rebreather 15.00 08/29/16 08:00 99.0 100 30 118/66 95 08/29/16 08:00 98 08/29/16 06:20 94 40 08/29/16 06:10 98.4 93 24 118/75 93 08/29/16 05:40 94 29 114/66 98 BiPAP 40 08/29/16 03:50 97 40 08/29/16 02:56 107 29 117/61 98 BiPAP 40 08/29/16 01:30 40 08/29/16 01:20 97 35 08/29/16 00:11 117 30 100 Non-Rebreather 15 08/29/16 00:09 72 Non-Rebreather 15 08/29/16 00:09 72 Non-Rebreather 15.00 08/29/16 00:03 98.2 121 30 165/81 72 Physical Exam GENERAL: This is a well-nourished, well-developed patient, in no apparent distress. SKIN: No rashes, ecchymoses or lesions. Cool and dry. HEAD: Atraumatic. Normocephalic. EYES: Extraocular motions intact. No scleral icterus. No injection or drainage. ENT: Nose without bleeding, purulent drainage. Airway patent. NECK: Trachea midline. CARDIOVASCULAR: Normal pulses, well perfused extremities RESPIRATORY: Nonlabored respirations, breathing treatment during exam. GASTROINTESTINAL: Abdomen soft, non-tender, nondistended. GENITOURINARY: Circumcised phallus, patrick catheter in place, Bilateral descended testis MUSCULOSKELETAL: Extremities without clubbing, cyanosis, or edema. NEUROLOGICAL: Awake and alert. Motor and sensory grossly within normal limits. Normal speech. Lab results reviewed: Yes Laboratory Tests Test 08/29/16 08/29/16 08/29/16 08/29/16 00:00 00:50 03:20 10:00 White Blood Count 18.9 15.7 Red Blood Count 6.24 5.80 Hemoglobin 12.2 11.1 Hematocrit 40.7 37.5 Mean Corpuscular Volume 65.2 64.5 Mean Corpuscular Hemoglobin 19.6 19.2 Mean Corpuscular Hemoglobin 30.1 29.7 Concent Red Cell Distribution Width 18.9 19.5 Platelet Count 300 262 Mean Platelet Volume 8.5 8.5 Neutrophils (%) (Auto) 88.9 95.0 Lymphocytes (%) (Auto) 5.0 2.9 Monocytes (%) (Auto) 5.7 1.5 Eosinophils (%) (Auto) 0.0 0.0 Basophils (%) (Auto) 0.4 0.6 Neutrophils # (Auto) 16.8 14.9 Lymphocytes # (Auto) 0.9 0.5 Monocytes # (Auto) 1.1 0.2 Eosinophils # (Auto) 0.0 0.0 Basophils # (Auto) 0.1 0.1 CBC Comment AUTO DIFF AUTO DIFF Differential Comment AUTO DIFF AUTO DIFF CONFIRMED CONFIRMED Platelet Estimate NORMAL NORMAL Platelet Morphology Comment ENLARGED ENLARGED Acanthocytes OCC OCC Prothrombin Time 13.3 Prothromb Time International 1.2 Ratio Activated Partial 27.9 Thromboplast Time Urine Color YELLOW Urine Turbidity CLEAR Urine pH 5.0 Urine Specific [place] 1.021 Urine Protein TRACE Urine Glucose (UA) NEG Urine Ketones NEG Urine Occult Blood NEG Urine Nitrite NEG Urine Bilirubin NEG Urine Urobilinogen LESS THAN 2.0 Urine Leukocyte Esterase NEG Urine RBC 3 Urine WBC LESS THAN 1 Urine Squamous Epithelial <1 Cells Microscopic Urinalysis Comment CATH-CULT NOT IND Sodium Level 141 141 Potassium Level 3.6 3.7 Chloride Level 103 104 Carbon Dioxide Level 24.6 27.4 Anion Gap 13 10 Blood Urea Nitrogen 21 22 Creatinine 1.21 1.20 Estimat Glomerular Filtration 60 60 Rate Random Glucose 119 139 Lactic Acid Level 2.7 1.8 1.6 Calcium Level 8.9 8.2 Magnesium Level 2.2 Total Bilirubin 1.2 Aspartate Amino Transf 9 (AST/SGOT) Alanine Aminotransferase 20 (ALT/SGPT) Alkaline Phosphatase 110 Total Creatine Kinase 39 92 Troponin I 0.04 0.04 B-Type Natriuretic Peptide 471 Total Protein 8.0 Albumin 3.6 Lipase 197 Blood Gas Puncture Site RT BRACHIAL Blood Gas Patient Temperature 98.6 Blood Gas HCO3 23 Blood Gas Base Excess -0.8 Blood Gas Oxygen Saturation 68 Arterial Blood pH 7.45 Arterial Blood Partial 34 Pressure CO2 Arterial Blood Partial 38 Pressure O2 Arterial Blood Oxygen Content 11.3 Arterial Blood 2.2 Carboxyhemoglobin Arterial Blood Methemoglobin 0.7 Blood Gas Hemoglobin 11.9 Oxygen Delivery Device ROOMAIR Blood Gas Inspired Oxygen 21 Helmet Cells OCC Keratocytes OCC Date/Time Procedure Status Source Growth 08/29/16 10:00 Aerobic Blood Culture Received Blood Peripheral Pending 08/29/16 10:00 Anaerobic Blood Culture Received Blood Peripheral Pending 08/29/16 00:30 Influenza Types A,B Antigen (YU) - Final Complete Nasal Aspirate NEGATIVE FOR FLU A AND B ANTIGEN.... Result Diagram: 08/29/16 1000 08/29/16 1000 Imaging Last Impressions Chest X-Ray 08/29/16 0800 Signed Impressions: Service Date/Time: Monday, August 29, 2016 08:53 - CONCLUSION: Cardiomegaly with diffuse increased parenchymal markings consistent with CHF which is unchanged from the prior exam. Jimenez Abarca MD CT Angiography 08/29/16 0029 Signed Impressions: Service Date/Time: Monday, August 29, 2016 01:39 - CONCLUSION: 1. Negative for pulmonary embolus. 2. Moderate to severe pulmonary fibrosis with findings characteristic of usual interstitial pneumonitis. 3. Spiculated 2 cm nodule posterior segment right upper lobe with associated surrounding lung kristan. Differential diagnosis includes postsurgical change versus lung neoplasm. Recommend comparison with prior studies or further evaluation with PET scan. 4. Enlarged central pulmonary arteries characteristic of pulmonary hypertension. Hawk Roe MD Lower Extremity Ultrasound 08/29/16 0000 Signed Impressions: Service Date/Time: Monday, August 29, 2016 01:11 - CONCLUSION: Normal examination. Hawk Roe MD Assessment and Plan Problem List: (1) Sepsis ICD Code: A41.9 Status: Acute (2) Urinary retention ICD Code: R33.9 Status: Acute Assessment and Plan 66 yo male with urinary retention -Continue flomax and finasteride -Retention may be transient due to other co-morbidities -Recommend patrick catheter removal with voiding trial once patient is stable enough to transfer out of ICU -If patient unable to void, replace patrick catheter and may be discharged with catheter in place. -Patient to follow-up with Urology in clinic after discharge -Please call with questions Problem Qualifiers (1) Sepsis: Qualified Code: A41.9 - Sepsis, due to unspecified organism Toni Scanlon MD Aug 29, 2016 19:49
--- NOTE | 2016-08-29 20:37 | MB ---
cc: BRANDON NAVA DATE OF CONSULTATION 08/29/[address] Valencia REASON FOR CONSULTATION Evaluation for shortness of breath. HISTORY OF PRESENT ILLNESS Mr. Singer is a 66-year-old white male with non-Hodgkin lymphoma status post chemotherapy, history of hypertension and interstitial lung disease. The patient came to the hospital because of acute urinary retention. He was admitted in the hospital. Today his shortness of breath got worse and he developed atrial fibrillation. The patient is transferred to the intensive care unit. He is put on BiPAP. He had a CT of the chest done which does not show any pulmonary embolism. It shows moderate to severe pulmonary fibrosis. Findings consistent with UIP. He has a 2 cm nodule in the posterior segment of the right upper lobe. His echocardiogram shows that ejection fraction is 45-50% and RVS is 43. His blood gas on room air pH 7.45, pCO2 34, pO2 38. CBC shows WBC count 15.7, hemoglobin 11.1, hematocrit 37.5, MCV 64, platelet count 262, sodium 141, potassium 3.7, chloride 104, Co2 27, BUN 22, creatinine 1.20. PAST MEDICAL HISTORY 1. cerebral palsy, 2. Hypertension, 3. Pulmonary fibrosis 4. History of lymphoma treated with chemotherapy 5. Hyperlipidemia, 6. Multiple surgeries on the lower extremity 7. Cerebral palsy MEDICATIONS Currently taking 1. Rocephin 1 gram a day 2. Zithromax 500 mg a day, 3. Solu-Medrol 60 mg q. 6-hour. 4. Albuterol/Atrovent nebulizer treatment. 5. Lasix 40 mg twice a day. 6. Lovenox 40 mg q.24 h. ALLERGIES NO KNOWN DRUG ALLERGIES. SOCIAL HISTORY He has remote history of smoking. No alcohol use. He used to work in an office. He is disabled. FAMILY HISTORY He lives alone. He has one brother who lives in [place]. He is single. No children. REVIEW OF SYSTEMS He uses a wheelchair, able to transfer himself and able to walk short distances. No headache or dizziness, no stroke. No deep venous thrombosis or embolism. PHYSICAL EXAMINATION GENERAL: Well built, well-nourished male mildly short of breath. He is on BiPAP. VITAL SIGNS: Blood pressure 157/84, heart rate 110, respirations 208, temperature 98.6 HEENT: Pupils are equal and reactive. He has bilateral cataract. Oral mucosa and nasal mucosa normal. NECK: Supple. JVP not raised. CHEST: Equal bilaterally. Inspiratory rales. CARDIOVASCULAR: S1 and S2 normal. ABDOMEN: Benign. EXTREMITIES: 1+ pitting edema. IMPRESSION 1. Respiratory insufficiency and hypoxia. 2. No pulmonary embolism 3. Pulmonary hypertension 4. Pulmonary fibrosis, possible UIP 5. History of Non-Hodgkin's lymphoma status post chemotherapy. 6. History of cerebral palsy 7. 2 cm lung nodule PLAN I discussed with the patient we will maintain him on BiPAP, keep the saturation greater than 90%. Continue IV Solu-Medrol. Put him on antibiotic. Wean from the oxygen. We will with evaluate him for need for home oxygen therapy. When he gets better, will need a pulmonary function study. Further treatment will depend on the course in the hospital. Thank you, Dr. Valencia, for this consultation. MD LIANNA Genao/ /7:47 PM /8:13 PM MTDSu
[2016-08-29] MEDS ORDERED: CHLORHEXIDINE GLUCONATE 2 % 1 PACK (2 CLOTHS)(extra cloths) TOP PRN (21:00)
[2016-08-29] MEDS ORDERED: DIGOXIN 0.5 MG/2 ML VIAL IV PUSH ONE (21:00)
--- NOTE | 2016-08-29 21:12 | EKG ---
Date Performed: 08/29/2016 Time Performed: 18:03:47 PTAGE: 66 years EKG: BASELINE ARTIFACT PRESENT. Unclear underlying tachycardia INTRAVENTRICULAR CONDUCTION DELAY ANTERIOR MYOCARDIAL INFARCTION , PROBABLY OLD INFERIOR MYOCARDIAL INFARCTION , OF INDETERMINATE AGE ABNORMAL ECG NO SIGNIFICANT CHANGE FROM PRIOR ELECTROCARDIOGRAM. PREVIOUS TRACING : 08/29/2016 00.14 DOCTOR: Jonathan Hill Interpretating Date/Time 08/29/2016 21:11:35
[2016-08-29] MEDS: AZITHROMYCIN INJ 500 MG in SODIUM CHLOR 0.9% 250 ML INJ 250 ML IV SCH (22:49)
[2016-08-30] VITALS (16 sets, daily range): BP systolic 115–139; BP diastolic 58–66; PULSE 80–111; RESP 19–28; TEMP 96.9–98.6; O2SAT 89–98
[2016-08-30] MEDS: cefTRIAXone INJ 1,000 MG in SODIUM CHLORIDE 0.9% INJ 100 ML IV SCH ×2
[2016-08-30] MEDS ORDERED: DIGOXIN 0.5 MG/2 ML VIAL IV PUSH ONE (03:00)
[2016-08-30] MEDS: CHLORHEXIDINE GLUCONATE 2 % 1 PACK (2 CLOTHS)(taper/protocol) TOP SCH (03:10)
[2016-08-30 05:21] LABS: BICARBONATE 24.4 MEQ/L (21.0-32.0); MAGNESIUM 2.5 MG/DL (1.5-2.5)
[2016-08-30 05:35] LABS: DIGOXIN 2.2 NG/ML (0.8-2.0)
[2016-08-30] MEDS: ENOXAPARIN SODIUM 40 MG/0.4 ML SYRINGE SQ SCH (05:51)
[2016-08-30] MEDS: methylPREDNISolone SOD SUCC 125 MG/2 ML VIAL IV PUSH SCH ×3 (05:51→18:07)
[2016-08-30 06:35] LABS: AUTOMATED NEUTROPHIL # 15.9 TH/MM3 (1.8-7.7); BASOPHIL # 0.1 TH/MM3 (0-0.2); BASOPHIL % 0.5 % (0.0-2.0); HEMATOCRIT 33.9 % (39.0-51.0); HEMO FLAGS AUTO DIFF; LYMPH % 1.7 % (9.0-44.0); LYMPHOCYTE # 0.3 TH/MM3 (1.0-4.8); MEAN CELL VOLUME 66.7 FL (80.0-100.0); MEAN CORPUSCULAR HEMOGLOBIN 20.6 PG (27.0-34.0); MEAN CORPUSCULAR HGB CONC 30.8 % (32.0-36.0); MONO % 1.9 % (0.0-8.0); NEUT % 95.9 % (16.0-70.0); PLATELET COUNT 228 TH/MM3 (150-450); RED BLOOD COUNT 5.08 MIL/MM3 (4.50-5.90); RED CELL DISTRIBUTION WIDTH 19.4 % (11.6-17.2); WHITE BLOOD COUNT 16.6 TH/MM3 (4.0-11.0)
[2016-08-30] MEDS ORDERED: DIATRIZOATE MEGLUM/DIATRIZOATE SOD 9 ML CUP PO ONE (07:28)
[2016-08-30 07:43] LABS: ACANTHOCYTES OCC (NORMAL); KERATOCYTES OCC (NORMAL)
[2016-08-30 07:44] LABS: PLATELET ESTIMATE SMEAR NORMAL (NORMAL); PLATELET MORPHOLOGY NORMAL (NORMAL); SCAN/DIFF AUTO DIFF CONFIRMED
[2016-08-30] MEDS: ASPIRIN EC 81 MG TABEC PO SCH (08:45)
[2016-08-30] MEDS: FUROSEMIDE 40 MG/4 ML VIAL IV PUSH SCH ×2 (08:46→18:07)
[2016-08-30] MEDS: RESP: ALBUTEROL 2.5 MG/IPRATROPIUM 0.5 MG NEB (SCH) NEB ×4 (09:07→20:00)
[2016-08-30] MEDS ORDERED: INFLUENZA VIRUS VACCINE (QUADRIVALENT) 0.5 ML SYR IM ONE (10:00)
[2016-08-30] MEDS ORDERED: IOHEXOL 350 MG/ML 10 ML VIAL (for RAD DIAG) IV ONE (12:53)
--- NOTE | 2016-08-30 13:00 | HHI.PR ---
Subjective Remarks Less SOB from admission. Objective Vitals Vital Signs Date Time Temp Pulse Resp B/P Pulse Ox O2 Delivery O2 Flow Rate FiO2 08/30/16 10:00 97 08/30/16 09:08 94 Nasal Cannula 6.00 08/30/16 08:00 80 08/30/16 06:00 95 08/30/16 04:37 97 40 08/30/16 04:00 100 08/30/16 04:00 98.1 100 26 115/65 96 08/30/16 02:00 98 08/30/16 01:51 98 40 08/30/16 00:00 105 08/30/16 00:00 96.9 105 28 117/58 89 08/29/16 23:43 96 40 08/29/16 22:00 113 08/29/16 20:10 95 40 08/29/16 20:00 99.3 103 26 107/68 99 08/29/16 20:00 103 08/29/16 18:00 124 08/29/16 16:50 96 40 08/29/16 16:00 123 08/29/16 16:00 98.6 123 35 157/84 99 08/29/16 14:00 98 08/29/16 13:00 100 08/29/16 08/29/16 08/30/16 15:00 23:00 07:00 Intake Total 480 ml 1310 ml Output Total 1900 ml 350 ml Balance -1420 ml 960 ml Intake Oral 480 ml 960 ml IV Total 350 ml Output Urine Total 1900 ml 350 ml Result Diagram: 08/30/16 0430 08/30/16 0430 Imaging Last Impressions Chest X-Ray 08/29/16 0800 Signed Impressions: Service Date/Time: Monday, August 29, 2016 08:53 - CONCLUSION: Cardiomegaly with diffuse increased parenchymal markings consistent with CHF which is unchanged from the prior exam. Jimenez Abarca MD CT Angiography 08/29/16 0029 Signed Impressions: Service Date/Time: Monday, August 29, 2016 01:39 - CONCLUSION: 1. Negative for pulmonary embolus. 2. Moderate to severe pulmonary fibrosis with findings characteristic of usual interstitial pneumonitis. 3. Spiculated 2 cm nodule posterior segment right upper lobe with associated surrounding lung kristan. Differential diagnosis includes postsurgical change versus lung neoplasm. Recommend comparison with prior studies or further evaluation with PET scan. 4. Enlarged central pulmonary arteries characteristic of pulmonary hypertension. Hawk Roe MD Lower Extremity Ultrasound 08/29/16 0000 Signed Impressions: Service Date/Time: Monday, August 29, 2016 01:11 - CONCLUSION: Normal examination. Hawk Roe MD A/P Problem List: (1) Hypoxia Status: Acute Plan: - comgmt with Pulm Med - Pt presented to the ED on 08/29/16 for evaluation of acute urinary retention as well as shortness of breath. - Patient reported increased SOB and productive cough, worse on day of admission - According to the ER notes, when EMS first arrived on scene, patient's pulse ox was 60% on room air. Patient was given 125 mg of Solu-Medrol as well as to breathing treatments, and pulse ox upon arrival to the emergency room was 72% on room air. Patient was placed on BiPAP with improvement in his SOB. - CXR in the ED indicated bilateral airspace consolidation especially basilar and perihilar, ddx of infiltrate vs. edema. He was given Lasix 80 mg IV x one dose and Azithromycin and Ceftriaxone IV in the ED. - CTA was negative for pulmonary embolus but noted moderate to severe pulmonary fibrosis with findings characteristic of usual interstitial pneumonitis, spiculated 2 cm nodule posterior segment right upper lobe with associated surrounding lung kristan and enlarged central pulmonary arteries characteristic of pulmonary hypertension. - Echocardiogram (08/29/16) --> EF 45-50% - Pt currently weaned to 6L by NC - Blood Cultures (08/29/16) --> NO growth to date - Cont. Azithromycin and Ceftriaxone - Cont. Solu-Medrol 60mg Q6H - Duonebs Q4H WA - Acapella - IS - Pt will likely need an outpt PET/CT to further evaluate this nodule noted on CTA - DVT prophylaxis with Lovenox (2) Pulmonary fibrosis Status: Chronic Plan: - See above. (3) Lung nodule Status: Acute Plan: - See above. (4) Urinary retention Status: Acute Plan: - Pt has had new onset of urinary retention. - Jenkins cath placed in ED - Check CT Abd/pelvis - Consult Urology - Check PSA (5) Hx of non-Hodgkin's lymphoma Status: Resolved Plan: - Pt with a remote hx of Non-Hodgkin's lymphoma s/p chemo in 1987 and previously followed with Dr. Sotelo. (6) Hyperlipidemia Status: Chronic Plan: - Cont. home meds (7) HTN (hypertension) Status: Chronic Plan: - BP stable. Problem Qualifiers (1) Hyperlipidemia: Qualified Code: E78.5 - Hyperlipidemia, unspecified hyperlipidemia type (2) HTN (hypertension): Qualified Code: I10 - Essential hypertension Fredrick Valencia DO Aug 30, 2016 13:00
--- NOTE | 2016-08-30 13:08 | RADRPT ---
EXAM DATE/TIME: 08/30/2016 12:12 [facility] COMPARISON: No previous studies available for comparison. INDICATIONS : Bladder retention. Shortness of breath. History of non-Hodgkin's lymphoma and cerebral palsy. IV CONTRAST: 99 cc Omnipaque 350 (iohexol) IV ORAL CONTRAST: Prescribed oral contrast ingested. RADIATION DOSE: 16.23 CTDIvol (mGy) MEDICAL HISTORY : Cerebral palsy, Non-Hodgkin's lymphoma, pulmonary fibrosis. SURGICAL HISTORY : None. ENCOUNTER: Initial ACUITY: 1 day PAIN SCALE: 0/10 LOCATION: lower quadrant TECHNIQUE: Volumetric scanning of the abdomen and pelvis was performed. Using automated exposure control and ad justment of the mA and/or kV according to patient size, radiation dose was kept as low as reasonably achievable to obtain optimal diagnostic quality images. FINDINGS: LOWER LUNGS: Chronic scarring and/or fibrosis is present with mild honeycombing. LIVER: Homogeneous density without lesion. There is no dilation of the biliary tree. The gallbladder is con tracted and otherwise unremarkable. There is mild steatosis. SPLEEN: Normal size without lesion. PANCREAS: Within normal limits. KIDNEYS: Normal in size and shape. There is no mass, stone or hydronephrosis. ADRENAL GLANDS: Within normal limits. VASCULAR: There is no aortic aneurysm. Atherosclerotic changes are present in the aorta. BOWEL/MESENTERY: Multiple scattered diverticuli present with no focal wall thickening or inflammatory change. Multiple loops of nondilated air-containing small bowel several small air-fluid levels. There is no free air or fluid. ABDOMINAL WALL: Within normal limits. RETROPERITONEUM: There is no lymphadenopathy. BLADDER: A Jenkins catheter is present. There may be mild bladder wall thickening. REPRODUCTIVE: Within normal limits. INGUINAL: There is no lymphadenopathy or hernia. MUSCULOSKELETAL: Within normal limits for patient age. CONCLUSION: 1. A Jenkins catheter is present in the urinary bladder. There may be bladder wall thickening. 2. Mild diverticulosis with no inflammatory change. There is a moderate amount of stool in the distal colon. There is a mildly nonspecific and nonobstructive bowel gas pattern. 3. The gallbladder is decompressed but otherwise unremarkable. 4. Chronic fibrosis and scarring in the lung bases with honeycombing. 5. The kidneys are unremarkable appearance. Joe Davila MD on August 30, 2016 at 13:02 Board Certified Radiologist. This report was verified electronically.
--- NOTE | 2016-08-30 15:35 | HHI.PR ---
Subjective Remarks 66 YOWM with h/o Cerebral Palsy, CVA, Resp insuff Used CPAP, now on RA Slept better Mild sob Objective Vital Signs Vital Signs Date Time Temp Pulse Resp B/P Pulse Ox O2 Delivery O2 Flow Rate FiO2 08/30/16 12:00 105 08/30/16 10:00 97 08/30/16 09:08 94 Nasal Cannula 6.00 08/30/16 08:00 80 08/30/16 06:00 95 08/30/16 04:37 97 40 08/30/16 04:00 100 08/30/16 04:00 98.1 100 26 115/65 96 08/30/16 02:00 98 08/30/16 01:51 98 40 08/30/16 00:00 105 08/30/16 00:00 96.9 105 28 117/58 89 08/29/16 23:43 96 40 08/29/16 22:00 113 08/29/16 20:10 95 40 08/29/16 20:00 99.3 103 26 107/68 99 08/29/16 20:00 103 08/29/16 18:00 124 08/29/16 16:50 96 40 08/29/16 16:00 123 08/29/16 16:00 98.6 123 35 157/84 99 I/O 08/29/16 08/29/16 08/29/16 08/30/16 08/30/16 08/30/16 07:00 15:00 23:00 07:00 15:00 23:00 Intake Total 480 ml 1310 ml Output Total 1875 ml 1900 ml 350 ml Balance -1875 ml -1420 ml 960 ml Intake Oral 480 ml 960 ml IV Total 350 ml Output Urine Total 1875 ml 1900 ml 350 ml # Voids 2 Result Diagram: 08/30/16 0430 08/30/16 0430 Objective Remarks GENERAL: WBWN WM NAD SKIN: Warm and dry. HEAD: Normocephalic. EYES: No scleral icterus. No injection or drainage. NECK: Supple, trachea midline. No JVD or lymphadenopathy. CARDIOVASCULAR: Regular rate and rhythm without murmurs, gallops, or rubs. RESPIRATORY: Breath sounds equal bilaterally. No accessory muscle use. GASTROINTESTINAL: Abdomen soft, non-tender, nondistended. MUSCULOSKELETAL: No cyanosis, or edema. BACK: Nontender without obvious deformity. No CVA tenderness. A/P Assessment and Plan Resp insuff Hypoxia improved PHTN Pulm Fibrosis NHL Cerebral Palsy PLAN: Supplement 02 CPAP at night and PRN Aerosol nebs Diurease SQ Lovenox Cont Abx. [place] Nam MD Aug 30, 2016 15:35
[2016-08-31] VITALS (12 sets, daily range): BP systolic 109–135; BP diastolic 59–71; PULSE 80–109; RESP 20–24; TEMP 97.8–99.1; O2SAT 90–96
[2016-08-31] MEDS: cefTRIAXone INJ 1,000 MG in SODIUM CHLORIDE 0.9% INJ 100 ML IV SCH ×2
[2016-08-31] MEDS: CHLORHEXIDINE GLUCONATE 2 % 1 PACK (2 CLOTHS)(taper/protocol) TOP SCH (00:01)
[2016-08-31] MEDS: methylPREDNISolone SOD SUCC 125 MG/2 ML VIAL IV PUSH SCH ×5 (05:26→23:29)
[2016-08-31] MEDS: ENOXAPARIN SODIUM 40 MG/0.4 ML SYRINGE SQ SCH (05:27)
--- NOTE | 2016-08-31 08:18 | RADRPT ---
EXAM DATE/TIME: 08/31/2016 08:00 [facility] COMPARISON: CHEST PA & LAT, August 29, 2016, 8:53. INDICATIONS : Short of breath. MEDICAL HISTORY : Cerebral palsy. SURGICAL HISTORY : None. ENCOUNTER: Subsequent ACUITY: 4 - 6 days PAIN SCORE: 0/10 LOCATION: Bilateral chest FINDINGS: PA and lateral views of the chest demonstrate diffuse bilateral airspace disease more confluent in th e right upper lobe and left lower lobe. Heart enlarged. Elevation right hemidiaphragm.. Osseous stru ctures are intact. CONCLUSION: Diffuse bilateral airspace disease likely pulmonary edema with cardiomegaly. No significant change. Jose Antonio Cowart MD on August 31, 2016 at 8:16 Board Certified Radiologist. This report was verified electronically.
[2016-08-31] MEDS: RESP: ALBUTEROL 2.5 MG/IPRATROPIUM 0.5 MG NEB (SCH) NEB ×4 (08:34→19:54)
[2016-08-31] MEDS: ASPIRIN EC 81 MG TABEC PO SCH (09:21)
[2016-08-31] MEDS: FUROSEMIDE 40 MG/4 ML VIAL IV PUSH SCH (09:21)
--- NOTE | 2016-08-31 12:21 | HHI.PR ---
Subjective Remarks No new complaints. Less SOB from admission. Objective Vitals Vital Signs Date Time Temp Pulse Resp B/P Pulse Ox O2 Delivery O2 Flow Rate FiO2 08/31/16 08:35 94 Nasal Cannula 5.00 08/31/16 08:00 98.9 98 22 120/65 95 08/31/16 08:00 98 08/31/16 06:00 86 08/31/16 04:00 80 08/31/16 04:00 98.9 80 20 111/60 93 08/31/16 02:00 86 08/31/16 00:00 98.6 90 22 109/59 91 08/31/16 00:00 90 08/30/16 22:00 100 08/30/16 20:27 94 Nasal Cannula 5.00 08/30/16 20:00 98.0 97 26 126/59 94 08/30/16 20:00 97 08/30/16 18:00 103 08/30/16 16:00 98.1 103 26 126/64 98 08/30/16 16:00 103 08/30/16 14:00 105 08/30/16 08/30/16 08/31/16 15:00 23:00 07:00 Intake Total 250 ml 360 ml Output Total 450 ml 800 ml 650 ml Balance -200 ml -800 ml -290 ml Intake Oral 250 ml IV Total 360 ml Output Urine Total 450 ml 800 ml 650 ml Stool Total 0 ml # Voids 1 Result Diagram: 08/30/16 0430 08/30/16 0430 Imaging Last Impressions Chest X-Ray 08/29/16 0800 Signed Impressions: Service Date/Time: Monday, August 29, 2016 08:53 - CONCLUSION: Cardiomegaly with diffuse increased parenchymal markings consistent with CHF which is unchanged from the prior exam. Jimenez Abarca MD CT Angiography 08/29/16 0029 Signed Impressions: Service Date/Time: Monday, August 29, 2016 01:39 - CONCLUSION: 1. Negative for pulmonary embolus. 2. Moderate to severe pulmonary fibrosis with findings characteristic of usual interstitial pneumonitis. 3. Spiculated 2 cm nodule posterior segment right upper lobe with associated surrounding lung kristan. Differential diagnosis includes postsurgical change versus lung neoplasm. Recommend comparison with prior studies or further evaluation with PET scan. 4. Enlarged central pulmonary arteries characteristic of pulmonary hypertension. Hawk Roe MD Lower Extremity Ultrasound 3/17/17 0000 Signed Impressions: Service Date/Time: Monday, August 29, 2016 01:11 - CONCLUSION: Normal examination. Hawk Roe MD Objective Remarks GENERAL: This is a well-nourished, well-developed patient, in no apparent distress. CARDIOVASCULAR: Regular rate and rhythm without murmurs, gallops, or rubs. RESPIRATORY: Clear to auscultation. Breath sounds equal bilaterally. No wheezes , rales, or rhonchi. GASTROINTESTINAL: Abdomen soft, non-tender, nondistended. Normal active bowel sounds MUSCULOSKELETAL: Extremities without clubbing, cyanosis, or edema. NEURO: Alert & Oriented x4 to person, place, time, situation. Moves all ext x4 A/P Problem List: (1) Hypoxia Status: Acute Plan: - comgmt with Pulm Med - Pt presented to the ED on 08/29/16 for evaluation of acute urinary retention as well as shortness of breath. - Patient reported increased SOB and productive cough, worse on day of admission - According to the ER notes, when EMS first arrived on scene, patient's pulse ox was 60% on room air. Patient was given 125 mg of Solu-Medrol as well as to breathing treatments, and pulse ox upon arrival to the emergency room was 72% on room air. Patient was placed on BiPAP with improvement in his SOB. - CXR in the ED indicated bilateral airspace consolidation especially basilar and perihilar, ddx of infiltrate vs. edema. He was given Lasix 80 mg IV x one dose and Azithromycin and Ceftriaxone IV in the ED. - CTA was negative for pulmonary embolus but noted moderate to severe pulmonary fibrosis with findings characteristic of usual interstitial pneumonitis, spiculated 2 cm nodule posterior segment right upper lobe with associated surrounding lung kristan and enlarged central pulmonary arteries characteristic of pulmonary hypertension. - Echocardiogram (08/29/16) --> EF 45-50% - CXR (08/31/16) --> increased pulmonary edema - Pt currently weaned to 5L by VT - Blood Cultures (08/29/16) --> NO growth to date - Cont. Azithromycin and Ceftriaxone (08/29 - present) - Cont. Solu-Medrol 60mg Q6H - Duonebs Q4H WA - extra lasix 40mg x once - increase IV lasix to 80mg BID - repeat CXR in AM - Acapella - IS - Pt will likely need an outpt PET/CT to further evaluate this nodule noted on CTA - DVT prophylaxis with Lovenox (2) Pulmonary fibrosis Status: Chronic Plan: - See above. (3) Lung nodule Status: Acute Plan: - See above. (4) Urinary retention Status: Acute Plan: - comgmt with Urology - Pt has had new onset of urinary retention. - Jenkins cath placed in ED - CT Abd/pelvis (08/30/16) --> possible bladder wall thickening - total PSA 2.6 (08/29/16) - f/u with Urology outpt, will likely need cystoscopy (5) Hx of non-Hodgkin's lymphoma Status: Resolved Plan: - Pt with a remote hx of Non-Hodgkin's lymphoma s/p chemo in 1987 and previously followed with Dr. Sotelo. (6) Hyperlipidemia Status: Chronic Plan: - Cont. home meds (7) HTN (hypertension) Status: Chronic Plan: - BP stable. Problem Qualifiers (1) Hyperlipidemia: Qualified Code: E78.5 - Hyperlipidemia, unspecified hyperlipidemia type (2) HTN (hypertension): Qualified Code: I10 - Essential hypertension Fredrick Valencia DO Aug 31, 2016 12:21
[2016-08-31] MEDS ORDERED: MAGNESIUM HYDROXIDE SUSP 30 ML CUP PO PRN (12:30)
[2016-08-31] MEDS ORDERED: FUROSEMIDE 40 MG/4 ML VIAL IV PUSH ONE (12:45)
[2016-08-31] MEDS: DOCUSATE SODIUM 100 MG CAP PO SCH ×2 (14:12→20:44)
--- NOTE | 2016-08-31 16:52 | HHI.PR ---
Subjective Remarks 66 YOWM with h/o Cerebral Palsy, CVA, Resp insuff Uses 02 2 LNC Slept better Mild sob no cough or sp Objective Vital Signs Vital Signs Date Time Temp Pulse Resp B/P Pulse Ox O2 Delivery O2 Flow Rate FiO2 08/31/16 15:45 97.8 109 20 135/71 90 08/31/16 14:00 98 08/31/16 12:00 98.3 105 24 125/63 92 08/31/16 12:00 104 08/31/16 10:00 105 08/31/16 08:35 94 Nasal Cannula 5.00 08/31/16 08:00 98.9 98 22 120/65 95 08/31/16 08:00 98 08/31/16 06:00 86 08/31/16 04:00 80 08/31/16 04:00 98.9 80 20 111/60 93 08/31/16 02:00 86 08/31/16 00:00 98.6 90 22 109/59 91 08/31/16 00:00 90 08/30/16 22:00 100 08/30/16 20:27 94 Nasal Cannula 5.00 08/30/16 20:00 98.0 97 26 126/59 94 08/30/16 20:00 97 08/30/16 18:00 103 I/O 08/30/16 08/30/16 08/30/16 08/31/16 08/31/16 08/31/16 07:00 15:00 23:00 07:00 15:00 23:00 Intake Total 1310 ml 250 ml 360 ml 300 ml Output Total 350 ml 450 ml 800 ml 650 ml 600 ml 650 ml Balance 960 ml -200 ml -800 ml -290 ml -300 ml -650 ml Intake Oral 960 ml 250 ml 300 ml IV Total 350 ml 360 ml 0 ml Output Urine Total 350 ml 450 ml 800 ml 650 ml 600 ml 650 ml Stool Total 0 ml 0 ml # Voids 1 1 Result Diagram: 08/30/1642908/30/16429 Objective Remarks GENERAL: WBWN WM NAD SKIN: Warm and dry. HEAD: Normocephalic. EYES: No scleral icterus. No injection or drainage. NECK: Supple, trachea midline. No JVD or lymphadenopathy. CARDIOVASCULAR: Regular rate and rhythm without murmurs, gallops, or rubs. RESPIRATORY: Breath sounds equal bilaterally. No accessory muscle use. GASTROINTESTINAL: Abdomen soft, non-tender, nondistended. MUSCULOSKELETAL: No cyanosis, or edema. BACK: Nontender without obvious deformity. No CVA tenderness. A/P Assessment and Plan Resp insuff Hypoxia improved PHTN Pulm Fibrosis NHL Cerebral Palsy PLAN: Supplement 02 CPAP at night and PRN Aerosol nebs Diurease SQ Lovenox Cont Abx. Stable to tr to floor. Chico Nam MD Aug 31, 2016 16:52
[2016-08-31] MEDS ORDERED: FUROSEMIDE 40 MG/4 ML VIAL IV PUSH SCH (18:00)
[2016-08-31] MEDS: FUROSEMIDE 100 MG/10 ML VIAL IV PUSH SCH (18:13)
[2016-08-31] MEDS: AZITHROMYCIN INJ 500 MG in SODIUM CHLOR 0.9% 250 ML INJ 250 ML IV SCH ×3 (23:43)
[2016-09-01] VITALS (8 sets, daily range): BP systolic 104–118; BP diastolic 59–64; PULSE 88–107; RESP 20–24; TEMP 96.3–98.5; O2SAT 91–94
[2016-09-01] MEDS: cefTRIAXone INJ 1,000 MG in SODIUM CHLORIDE 0.9% INJ 100 ML IV SCH (01:08)
[2016-09-01] MEDS: CHLORHEXIDINE GLUCONATE 2 % 1 PACK (2 CLOTHS)(taper/protocol) TOP SCH (04:40)
[2016-09-01] MEDS: methylPREDNISolone SOD SUCC 125 MG/2 ML VIAL IV PUSH SCH ×3 (06:18→17:40)
[2016-09-01] MEDS: ENOXAPARIN SODIUM 40 MG/0.4 ML SYRINGE SQ SCH (06:18)
[2016-09-01 06:57] LABS: BASOPHIL % 0.1 % (0.0-2.0); HEMATOCRIT 34.2 % (39.0-51.0); LYMPH % 1.8 % (9.0-44.0); LYMPHOCYTE # 0.2 TH/MM3 (1.0-4.8); MEAN CELL VOLUME 66.6 FL (80.0-100.0); MEAN CORPUSCULAR HEMOGLOBIN 20.2 PG (27.0-34.0); MEAN CORPUSCULAR HGB CONC 30.3 % (32.0-36.0); MONO % 3.9 % (0.0-8.0); NEUT % 94.2 % (16.0-70.0); PLATELET COUNT 196 TH/MM3 (150-450); RED BLOOD COUNT 5.13 MIL/MM3 (4.50-5.90); RED CELL DISTRIBUTION WIDTH 19.3 % (11.6-17.2); WHITE BLOOD COUNT 11.7 TH/MM3 (4.0-11.0)
[2016-09-01 07:00] LABS: BICARBONATE 30.2 MEQ/L (21.0-32.0); HEMO FLAGS AUTO DIFF; MAGNESIUM 2.5 MG/DL (1.5-2.5); POTASSIUM 3.6 MEQ/L (3.5-5.1)
[2016-09-01] MEDS: RESP: ALBUTEROL 2.5 MG/IPRATROPIUM 0.5 MG NEB (SCH) NEB ×4 (08:00→20:54)
[2016-09-01 08:15] LABS: ACANTHOCYTES OCC (NORMAL); KERATOCYTES OCC (NORMAL)
[2016-09-01 08:16] LABS: PLATELET ESTIMATE SMEAR NORMAL (NORMAL); PLATELET MORPHOLOGY CLUMPED (NORMAL)
[2016-09-01 08:17] LABS: SCAN/DIFF AUTO DIFF CONFIRMED
[2016-09-01] MEDS: DOCUSATE SODIUM 100 MG CAP PO SCH ×2 (09:16→21:24)
[2016-09-01] MEDS: ASPIRIN EC 81 MG TABEC PO SCH (09:16)
[2016-09-01] MEDS: FUROSEMIDE 100 MG/10 ML VIAL IV PUSH SCH ×2 (09:16→17:40)
--- NOTE | 2016-09-01 11:08 | RADRPT ---
EXAM DATE/TIME: 09/01/2016 08:37 [facility] COMPARISON: CHEST PA & LAT, August 31, 2016, 8:00. INDICATIONS: Cough and shortness of breath; Evaluate for pneumonia. MEDICAL HISTORY: Non-Hodgkin's lymphoma. Cerebral palsy. SURGICAL HISTORY: None. ENCOUNTER: Subsequent ACUITY: 4 - 6 days PAIN SCORE: 0/10 LOCATION: Bilateral chest FINDINGS: Diffuse infiltrates are noted bilaterally and are consistent with moderate to severe pulmonary edema versus pneumonia. Clinical correlation is recommended. The heart is enlarged. There is elevation o f the right hemidiaphragm. Degenerative changes and scoliosis of the thoracic spine are noted. CONCLUSION: 1. Diffuse infiltrates bilaterally consistent with moderate to severe pulmonary edema versus pneumon ia. Clinical correlation is recommended. 2. Cardiomegaly. 3. Elevation of the right hemidiaphragm. 4. Degenerative changes and scoliosis of the thoracic spine. Jamie Campbell MD on September 01, 2016 at 9:48 Board Certified Radiologist. This report was verified electronically.
--- NOTE | 2016-09-01 14:18 | HHI.PR ---
Subjective Remarks feeling better overall eating breakfast. Objective Vitals heart reg lung course bs abd s/nt ext no edema patrick Vital Signs Date Time Temp Pulse Resp B/P Pulse Ox O2 Delivery O2 Flow Rate FiO2 09/01/16 08:27 93 Nasal Cannula 5.00 09/01/16 04:00 98.4 88 22 104/59 93 09/01/16 00:00 98.5 95 20 113/63 94 08/31/16 20:00 99.1 103 24 124/60 93 08/31/16 19:54 96 Nasal Cannula 5.00 08/31/16 15:45 97.8 109 20 135/71 90 08/31/16 08/31/16 09/01/16 15:00 23:00 07:00 Intake Total 300 ml 480 ml 950 ml Output Total 600 ml 2050 ml 1400 ml Balance -300 ml -1570 ml -450 ml Intake Oral 300 ml 480 ml 580 ml IV Total 0 ml 370 ml Output Urine Total 600 ml 2050 ml 1400 ml Stool Total 0 ml # Voids 1 # Bowel Movements 0 Result Diagram: 09/01/16 0440 09/01/16 0440 Imaging Last Impressions Chest X-Ray 08/29/16 0800 Signed Impressions: Service Date/Time: Monday, August 29, 2016 08:53 - CONCLUSION: Cardiomegaly with diffuse increased parenchymal markings consistent with CHF which is unchanged from the prior exam. Jimenez Abarca MD CT Angiography 08/29/16 0029 Signed Impressions: Service Date/Time: Monday, August 29, 2016 01:39 - CONCLUSION: 1. Negative for pulmonary embolus. 2. Moderate to severe pulmonary fibrosis with findings characteristic of usual interstitial pneumonitis. 3. Spiculated 2 cm nodule posterior segment right upper lobe with associated surrounding lung kristan. Differential diagnosis includes postsurgical change versus lung neoplasm. Recommend comparison with prior studies or further evaluation with PET scan. 4. Enlarged central pulmonary arteries characteristic of pulmonary hypertension. Hawk Roe MD Lower Extremity Ultrasound 08/29/16 0000 Signed Impressions: Service Date/Time: Monday, August 29, 2016 01:11 - CONCLUSION: Normal examination. Hawk Roe MD A/P Problem List: (1) Hypoxia Status: Acute Plan: -Pt has hx of usual interstit pulmonary fibrosis and emphesema with 2009 wedge resection of right upper and middle lobes. - Pt presented to the ED on 08/29/16 for evaluation of acute urinary retention as well as shortness of breath. - Patient reported increased SOB and productive cough, worse on day of admission - According to the ER notes, when EMS first arrived on scene, patient's pulse ox was 60% on room air. Patient was given 125 mg of Solu-Medrol as well as to breathing treatments, and pulse ox upon arrival to the emergency room was 72% on room air. Patient was placed on BiPAP with improvement in his SOB. - CXR in the ED indicated bilateral airspace consolidation especially basilar and perihilar, ddx of infiltrate vs. edema. He was given Lasix 80 mg IV x one dose and Azithromycin and Ceftriaxone IV in the ED. - CTA was negative for pulmonary embolus but noted moderate to severe pulmonary fibrosis with findings characteristic of usual interstitial pneumonitis, spiculated 2 cm nodule posterior segment right upper lobe with associated surrounding lung kristan and enlarged central pulmonary arteries characteristic of pulmonary hypertension. - Echocardiogram (08/29/16) --> EF 45-50% - CXR (08/31/16) --> increased pulmonary edema - Pt currently weaned to 5L by NC - Blood Cultures (08/29/16) --> NO growth to date - Cont. Azithromycin and Ceftriaxone (08/29 - present) - Cont. Solu-Medrol 60mg Q6H - Duonebs Q4H WA - cont iv lasix monitor urine output, check bmp, wean oxygen plan to remove patrick soon for voiding trial -- Pt will likely need an outpt PET/CT to further evaluate this nodule noted on CTA - DVT prophylaxis with Lovenox (2) Pulmonary fibrosis Status: Chronic Plan: - See above. (3) Lung nodule Status: Acute Plan: - See above. (4) Urinary retention Status: Acute Plan: - comgmt with Urology - Pt has had new onset of urinary retention. - Patrick cath placed in ED - CT Abd/pelvis (08/30/16) --> possible bladder wall thickening - total PSA 2.6 (08/29/16) - f/u with Urology outpt, will likely need cystoscopy (5) Hx of non-Hodgkin's lymphoma Status: Resolved Plan: - Pt with a remote hx of Non-Hodgkin's lymphoma s/p chemo in 1987 and previously followed with Dr. Sotelo. (6) Hyperlipidemia Status: Chronic Plan: - Cont. home meds (7) HTN (hypertension) Status: Chronic Plan: - BP stable. Problem Qualifiers (1) Hyperlipidemia: Qualified Code: E78.5 - Hyperlipidemia, unspecified hyperlipidemia type (2) HTN (hypertension): Qualified Code: I10 - Essential hypertension Taiwo Chaparro MD Sep 01, 2016 14:18
[2016-09-01] MEDS ORDERED: POTASSIUM CHLORIDE 20 MEQ CONTROLLED RELEASE TAB PO ONE (17:00)
--- NOTE | 2016-09-01 19:56 | HHI.PR ---
Subjective Remarks 66 YOWM with h/o Cerebral Palsy, CVA, Resp insuff Uses 02 2 LNC Slept better Mild sob no cough or sp Feels better and stronger Objective Vital Signs Vital Signs Date Time Temp Pulse Resp B/P Pulse Ox O2 Delivery O2 Flow Rate FiO2 09/01/16 16:00 97.0 102 24 118/59 93 09/01/16 12:00 97.8 107 22 118/63 91 09/01/16 08:27 93 Nasal Cannula 5.00 09/01/16 08:00 97.6 107 22 104/64 92 09/01/16 04:00 98.4 88 22 104/59 93 09/01/16 00:00 98.5 95 20 113/63 94 08/31/16 20:00 99.1 103 24 124/60 93 I/O 08/31/16 08/31/16 08/31/16 09/01/16 09/01/16 09/01/16 07:00 15:00 23:00 07:00 15:00 23:00 Intake Total 360 ml 300 ml 480 ml 950 ml 840 ml Output Total 650 ml 600 ml 2050 ml 1400 ml 1000 ml 1350 ml Balance -290 ml -300 ml -1570 ml -450 ml -160 ml -1350 ml Intake Oral 300 ml 480 ml 580 ml 840 ml IV Total 360 ml 0 ml 370 ml Output Urine Total 650 ml 600 ml 2050 ml 1400 ml 1000 ml 1350 ml Stool Total 0 ml # Voids 1 # Bowel Movements 0 1 Result Diagram: 09/01/1643909/01/160 Objective Remarks GENERAL: WBWN WM NAD SKIN: Warm and dry. HEAD: Normocephalic. EYES: No scleral icterus. No injection or drainage. NECK: Supple, trachea midline. No JVD or lymphadenopathy. CARDIOVASCULAR: Regular rate and rhythm without murmurs, gallops, or rubs. RESPIRATORY: Breath sounds equal bilaterally. No accessory muscle use. GASTROINTESTINAL: Abdomen soft, non-tender, nondistended. MUSCULOSKELETAL: No cyanosis, or edema. BACK: Nontender without obvious deformity. No CVA tenderness. A/P Assessment and Plan Resp insuff Hypoxia improved PHTN Pulm Fibrosis NHL Cerebral Palsy PLAN: Supplement 02 CPAP at night and PRN Aerosol nebs Diurease SQ Lovenox Cont Abx. Wean off 02 Check for home 02 need [place] Nam MD Sep 01, 2016 19:56
[2016-09-01] MEDS: POTASSIUM CHLORIDE 20 MEQ CONTROLLED RELEASE TAB PO SCH (21:25)
[2016-09-02] VITALS (8 sets, daily range): BP systolic 100–123; BP diastolic 60–70; PULSE 90–107; RESP 18–22; TEMP 96.2–99.7; O2SAT 90–94
[2016-09-02] MEDS: methylPREDNISolone SOD SUCC 125 MG/2 ML VIAL IV PUSH SCH ×2 (00:05→05:13)
[2016-09-02] MEDS: cefTRIAXone INJ 1,000 MG in SODIUM CHLORIDE 0.9% INJ 100 ML IV SCH (00:06)
[2016-09-02] MEDS: AZITHROMYCIN INJ 500 MG in SODIUM CHLOR 0.9% 250 ML INJ 250 ML IV SCH ×2 (00:06→23:31)
[2016-09-02] MEDS: CHLORHEXIDINE GLUCONATE 2 % 1 PACK (2 CLOTHS)(taper/protocol) TOP SCH (03:50)
[2016-09-02] MEDS: ENOXAPARIN SODIUM 40 MG/0.4 ML SYRINGE SQ SCH (05:14)
[2016-09-02] MEDS: RESP: ALBUTEROL 2.5 MG/IPRATROPIUM 0.5 MG NEB (SCH) NEB ×4 (07:18→22:26)
[2016-09-02 08:06] LABS: BICARBONATE 33.1 MEQ/L (21.0-32.0); POTASSIUM 3.8 MEQ/L (3.5-5.1)
[2016-09-02] MEDS: POTASSIUM CHLORIDE 20 MEQ CONTROLLED RELEASE TAB PO SCH ×2 (08:53→22:14)
[2016-09-02] MEDS: ASPIRIN EC 81 MG TABEC PO SCH (08:53)
[2016-09-02] MEDS: FUROSEMIDE 100 MG/10 ML VIAL IV PUSH SCH ×2 (08:54→15:37)
[2016-09-02] MEDS: DOCUSATE SODIUM 100 MG CAP PO SCH ×2 (08:56→21:00)
--- NOTE | 2016-09-02 10:37 | HHI.PR ---
Subjective Remarks breathing better. Objective Vitals heart reg lung diminished bs abd s/nt ext no edema patrick Vital Signs Date Time Temp Pulse Resp B/P Pulse Ox O2 Delivery O2 Flow Rate FiO2 09/02/16 07:22 90 Nasal Cannula 5.00 09/02/16 04:00 96.2 90 18 100/65 91 09/02/16 00:00 96.6 102 19 111/66 91 09/01/16 20:54 93 Nasal Cannula 5.00 09/01/16 20:00 96.3 105 20 117/63 91 09/01/16 16:00 97.0 102 24 118/59 93 09/01/16 12:00 97.8 107 22 118/63 91 09/01/16 09/01/16 09/02/16 15:00 23:00 07:00 Intake Total 840 ml 480 ml 720 ml Output Total 1000 ml 2200 ml 775 ml Balance -160 ml -1720 ml -55 ml Intake Oral 840 ml 480 ml 720 ml Output Urine Total 1000 ml 2200 ml 775 ml # Bowel Movements 1 Result Diagram: 09/01/16 0440 09/02/16 0510 Imaging Last Impressions Chest X-Ray 08/29/16 0800 Signed Impressions: Service Date/Time: Monday, August 29, 2016 08:53 - CONCLUSION: Cardiomegaly with diffuse increased parenchymal markings consistent with CHF which is unchanged from the prior exam. Jimenez Abarca MD CT Angiography 08/29/16 0029 Signed Impressions: Service Date/Time: Monday, August 29, 2016 01:39 - CONCLUSION: 1. Negative for pulmonary embolus. 2. Moderate to severe pulmonary fibrosis with findings characteristic of usual interstitial pneumonitis. 3. Spiculated 2 cm nodule posterior segment right upper lobe with associated surrounding lung kristan. Differential diagnosis includes postsurgical change versus lung neoplasm. Recommend comparison with prior studies or further evaluation with PET scan. 4. Enlarged central pulmonary arteries characteristic of pulmonary hypertension. Hawk Roe MD Lower Extremity Ultrasound 08/29/16 0000 Signed Impressions: Service Date/Time: Monday, August 29, 2016 01:11 - CONCLUSION: Normal examination. Hawk Roe MD A/P Problem List: (1) Hypoxia Status: Acute Plan: -Pt has hx of usual interstit pulmonary fibrosis and emphesema with 2009 wedge resection of right upper and middle lobes. - Pt presented to the ED on 08/29/16 for evaluation of acute urinary retention as well as shortness of breath. - Patient reported increased SOB and productive cough, worse on day of admission - According to the ER notes, when EMS first arrived on scene, patient's pulse ox was 60% on room air. Patient was given 125 mg of Solu-Medrol as well as to breathing treatments, and pulse ox upon arrival to the emergency room was 72% on room air. Patient was placed on BiPAP with improvement in his SOB. - CXR in the ED indicated bilateral airspace consolidation especially basilar and perihilar, ddx of infiltrate vs. edema. He was given Lasix 80 mg IV x one dose and Azithromycin and Ceftriaxone IV in the ED. - CTA was negative for pulmonary embolus but noted moderate to severe pulmonary fibrosis with findings characteristic of usual interstitial pneumonitis, spiculated 2 cm nodule posterior segment right upper lobe with associated surrounding lung kristan and enlarged central pulmonary arteries characteristic of pulmonary hypertension. - Echocardiogram (08/29/16) --> EF 45-50% - CXR (08/31/16) --> increased pulmonary edema - Pt currently weaned to 5L by NC - Blood Cultures (08/29/16) --> NO growth to date - Cont. Azithromycin and Ceftriaxone (08/29 - present) - wean steroid - Duonebs Q4H WA - cont iv lasix monitor urine output, check bmp, wean oxygen voiding trial in AM. patrick remove -- Pt will likely need an outpt PET/CT to further evaluate this nodule noted on CTA - DVT prophylaxis with Lovenox (2) Pulmonary fibrosis Status: Chronic Plan: - See above. (3) Lung nodule Status: Acute Plan: - See above. (4) Urinary retention Status: Acute Plan: - comgmt with Urology - Pt has had new onset of urinary retention. - Patrick cath placed in ED - CT Abd/pelvis (08/30/16) --> possible bladder wall thickening - total PSA 2.6 (08/29/16) - f/u with Urology outpt, will likely need cystoscopy (5) Hx of non-Hodgkin's lymphoma Status: Resolved Plan: - Pt with a remote hx of Non-Hodgkin's lymphoma s/p chemo in 1987 and previously followed with Dr. Sotelo. (6) Hyperlipidemia Status: Chronic Plan: - Cont. home meds (7) HTN (hypertension) Status: Chronic Plan: - BP stable. Problem Qualifiers (1) Hyperlipidemia: Qualified Code: E78.5 - Hyperlipidemia, unspecified hyperlipidemia type (2) HTN (hypertension): Qualified Code: I10 - Essential hypertension Taiwo Chaparro MD Sep 02, 2016 10:37
[2016-09-02] MEDS ORDERED: predniSONE 20 MG TAB PO ONE (10:45)
--- NOTE | 2016-09-02 19:18 | HHI.PR ---
Subjective Remarks 66 YOWM with h/o Cerebral Palsy, CVA, Resp insuff Uses 02 3 LNC Mild sob no cough or sp Feels better and stronger has patrick due to urinary retention Objective Vital Signs Vital Signs Date Time Temp Pulse Resp B/P Pulse Ox O2 Delivery O2 Flow Rate FiO2 09/02/16 16:00 97.8 98 22 112/64 91 09/02/16 12:00 98.2 93 20 116/61 93 09/02/16 08:00 96.5 94 20 123/70 91 09/02/16 07:22 90 Nasal Cannula 5.00 09/02/16 04:00 96.2 90 18 100/65 91 09/02/16 00:00 96.6 102 19 111/66 91 09/01/16 20:54 93 Nasal Cannula 5.00 09/01/16 20:00 96.3 105 20 117/63 91 I/O 09/01/16 09/01/16 09/01/16 09/02/16 09/02/16 09/02/16 07:00 15:00 23:00 07:00 15:00 23:00 Intake Total 950 ml 840 ml 480 ml 720 ml Output Total 1400 ml 1000 ml 2200 ml 775 ml 2275 ml Balance -450 ml -160 ml -1720 ml -55 ml -2275 ml Intake Oral 580 ml 840 ml 480 ml 720 ml IV Total 370 ml Output Urine Total 1400 ml 1000 ml 2200 ml 775 ml 2275 ml # Bowel Movements 0 1 1 Result Diagram: 09/01/16 0440 09/02/16 0510 Objective Remarks GENERAL: WBWN WM NAD SKIN: Warm and dry. HEAD: Normocephalic. EYES: No scleral icterus. No injection or drainage. NECK: Supple, trachea midline. No JVD or lymphadenopathy. CARDIOVASCULAR: Regular rate and rhythm without murmurs, gallops, or rubs. RESPIRATORY: Breath sounds equal bilaterally. No accessory muscle use. GASTROINTESTINAL: Abdomen soft, non-tender, nondistended. MUSCULOSKELETAL: No cyanosis, or edema. BACK: Nontender without obvious deformity. No CVA tenderness. A/P Assessment and Plan Resp insuff Hypoxia improved PHTN Pulm Fibrosis NHL Cerebral Palsy PLAN: Supplement 02 CPAP at night and PRN Aerosol nebs Diurease SQ Lovenox Cont Abx. Wean off 02 AnejaChico Dev MD Sep 02, 2016 19:18
[2016-09-02] MEDS: predniSONE 20 MG TAB PO SCH (22:14)
[2016-09-03] VITALS (8 sets, daily range): BP systolic 108–121; BP diastolic 63–70; PULSE 90–106; RESP 17–21; TEMP 96–97.5; O2SAT 90–93
[2016-09-03] MEDS: cefTRIAXone INJ 1,000 MG in SODIUM CHLORIDE 0.9% INJ 100 ML IV SCH (01:50)
[2016-09-03] MEDS: CHLORHEXIDINE GLUCONATE 2 % 1 PACK (2 CLOTHS)(taper/protocol) TOP SCH (04:00)
[2016-09-03] MEDS: ENOXAPARIN SODIUM 40 MG/0.4 ML SYRINGE SQ SCH (05:56)
--- NOTE | 2016-09-03 07:29 | RADRPT ---
EXAM DATE/TIME: 09/03/2016 06:12 [facility] COMPARISON: CHEST PA & LAT, September 01, 2016, 8:37. CHEST SINGLE AP, August 29, 2016, 0:15. INDICATIONS : Edema. Slight shortness of breath. MEDICAL HISTORY : Non Hodgkins lymphoma. Cerebral palsy. SURGICAL HISTORY : None. ENCOUNTER: Subsequent ACUITY: 1 week PAIN SCORE: 0/10 LOCATION: Bilateral chest FINDINGS: Portable AP view of the chest demonstrates a normal size cardiac silhouette. There are signs of volum e loss in the right hemithorax elevated right hemidiaphragm and rightward shift of the trachea. There are coarse interstitial versus airspace opacities bilaterally relatively diffusely throughout the ramin ngs but lower lung zone predominant. No pneumothorax or pleural effusion is identified. Bones demonst rate no acute finding. CONCLUSION: Stable chest x-ray with right lung volume loss and interstitial versus airspace opacities in the lowe r lung zones bilaterally. Jimenez Trivedi MD on September 03, 2016 at 7:26 Board Certified Radiologist. This report was verified electronically.
[2016-09-03 08:03] LABS: BICARBONATE 35.2 MEQ/L (21.0-32.0); MAGNESIUM 2.5 MG/DL (1.5-2.5); POTASSIUM 3.7 MEQ/L (3.5-5.1)
[2016-09-03] MEDS: DOCUSATE SODIUM 100 MG CAP PO SCH ×2 (08:12→19:30)
[2016-09-03] MEDS: POTASSIUM CHLORIDE 20 MEQ CONTROLLED RELEASE TAB PO SCH ×2 (08:12→19:28)
[2016-09-03] MEDS: ASPIRIN EC 81 MG TABEC PO SCH (08:12)
[2016-09-03] MEDS: predniSONE 20 MG TAB PO SCH ×2 (08:12→19:28)
[2016-09-03] MEDS: FUROSEMIDE 100 MG/10 ML VIAL IV PUSH SCH ×2 (08:13→18:19)
--- NOTE | 2016-09-03 09:14 | HHI.PR ---
Subjective Remarks no new complaints Objective Vitals heart reg lung course bs abd s/nt ext no edema patrick Vital Signs Date Time Temp Pulse Resp B/P Pulse Ox O2 Delivery O2 Flow Rate FiO2 09/03/16 08:11 90 Nasal Cannula 4.00 09/03/16 08:00 97.3 95 20 117/70 90 09/03/16 04:00 97.3 90 18 117/68 92 09/03/16 00:12 96.0 102 18 116/63 92 09/02/16 22:26 94 Nasal Cannula 4.00 09/02/16 20:00 99.7 107 18 108/60 90 09/02/16 16:00 97.8 98 22 112/64 91 09/02/16 12:00 98.2 93 20 116/61 93 09/02/16 09/02/16 09/03/16 15:00 23:00 07:00 Intake Total 350 ml 500 ml Output Total 2275 ml 1150 ml 600 ml Balance -2275 ml -800 ml -100 ml Intake Oral 350 ml 100 ml IV Total 400 ml Output Urine Total 2275 ml 1150 ml 600 ml # Bowel Movements 1 0 1 Result Diagram: 09/01/16 0440 09/03/16 0608 Imaging Last Impressions Chest X-Ray 08/29/16 0800 Signed Impressions: Service Date/Time: Monday, August 29, 2016 08:53 - CONCLUSION: Cardiomegaly with diffuse increased parenchymal markings consistent with CHF which is unchanged from the prior exam. Jimenez Abarca MD CT Angiography 08/29/16 0029 Signed Impressions: Service Date/Time: Monday, August 29, 2016 01:39 - CONCLUSION: 1. Negative for pulmonary embolus. 2. Moderate to severe pulmonary fibrosis with findings characteristic of usual interstitial pneumonitis. 3. Spiculated 2 cm nodule posterior segment right upper lobe with associated surrounding lung kristan. Differential diagnosis includes postsurgical change versus lung neoplasm. Recommend comparison with prior studies or further evaluation with PET scan. 4. Enlarged central pulmonary arteries characteristic of pulmonary hypertension. Hawk Roe MD Lower Extremity Ultrasound 08/29/16 0000 Signed Impressions: Service Date/Time: Monday, August 29, 2016 01:11 - CONCLUSION: Normal examination. Hawk Roe MD A/P Problem List: (1) Hypoxia Status: Acute Plan: -Pt has hx of usual interstit pulmonary fibrosis and emphesema with 2009 wedge resection of right upper and middle lobes. - Pt presented to the ED on 08/29/16 for evaluation of acute urinary retention as well as shortness of breath. - Patient reported increased SOB and productive cough, worse on day of admission - According to the ER notes, when EMS first arrived on scene, patient's pulse ox was 60% on room air. Patient was given 125 mg of Solu-Medrol as well as to breathing treatments, and pulse ox upon arrival to the emergency room was 72% on room air. Patient was placed on BiPAP with improvement in his SOB. - CXR in the ED indicated bilateral airspace consolidation especially basilar and perihilar, ddx of infiltrate vs. edema. He was given Lasix 80 mg IV x one dose and Azithromycin and Ceftriaxone IV in the ED. - CTA was negative for pulmonary embolus but noted moderate to severe pulmonary fibrosis with findings characteristic of usual interstitial pneumonitis, spiculated 2 cm nodule posterior segment right upper lobe with associated surrounding lung kristan and enlarged central pulmonary arteries characteristic of pulmonary hypertension. - Echocardiogram (08/29/16) --> EF 45-50% - CXR (08/31/16) --> increased pulmonary edema - Blood Cultures (08/29/16) --> NO growth to date his cxr today shows improving aeration bilaterally but he will have chronic changes due to fibrosis cont to wean oxygen. down to 4lnc today cont iv diuresis and monitor bmp pt refusing any type of snf..says his brother will care for him incentive spirometer duonebs and abx wean steroids dvt prophylaxiw d/c patrick for voiding trial..if fails then replace patrick and f/u urology clinic (2) Pulmonary fibrosis Status: Chronic Plan: - See above. (3) Lung nodule Status: Acute Plan: - See above. (4) Urinary retention Status: Acute Plan: - comgmt with Urology - Pt has had new onset of urinary retention. - Patrick cath placed in ED - CT Abd/pelvis (08/30/16) --> possible bladder wall thickening - total PSA 2.6 (08/29/16) - f/u with Urology outpt, will likely need cystoscopy (5) Hx of non-Hodgkin's lymphoma Status: Resolved Plan: - Pt with a remote hx of Non-Hodgkin's lymphoma s/p chemo in 1987 and previously followed with Dr. Sotelo. (6) Hyperlipidemia Status: Chronic Plan: - Cont. home meds (7) HTN (hypertension) Status: Chronic Plan: - BP stable. Problem Qualifiers (1) Hyperlipidemia: Qualified Code: E78.5 - Hyperlipidemia, unspecified hyperlipidemia type (2) HTN (hypertension): Qualified Code: I10 - Essential hypertension Taiwo Chaparro MD Sep 03, 2016 09:14
[2016-09-03] MEDS: RESP: ALBUTEROL 2.5 MG/IPRATROPIUM 0.5 MG NEB (SCH) NEB ×4 (09:23→21:46)
--- NOTE | 2016-09-03 18:55 | HHI.PR ---
Subjective Remarks 66 YOWM with h/o Cerebral Palsy, CVA, Resp insuff Uses 02 3 LNC Mild sob no cough or sp Feels better and stronger has patrick due to urinary retention No new complaint Objective Vital Signs Vital Signs Date Time Temp Pulse Resp B/P Pulse Ox O2 Delivery O2 Flow Rate FiO2 09/03/16 16:00 96.4 100 21 121/65 91 09/03/16 12:00 97.0 103 20 118/70 91 09/03/16 09:24 93 Nasal Cannula 3.00 09/03/16 08:11 90 Nasal Cannula 4.00 09/03/16 08:00 97.3 95 20 117/70 90 09/03/16 04:00 97.3 90 18 117/68 92 09/03/16 00:12 96.0 102 18 116/63 92 09/02/16 22:26 94 Nasal Cannula 4.00 09/02/16 20:00 99.7 107 18 108/60 90 I/O 09/02/16 09/02/16 09/02/16 09/03/16 09/03/16 09/03/16 07:00 15:00 23:00 07:00 15:00 23:00 Intake Total 720 ml 350 ml 500 ml 960 ml Output Total 775 ml 2275 ml 1150 ml 600 ml 1320 ml 200 ml Balance -55 ml -2275 ml -800 ml -100 ml -360 ml -200 ml Intake Oral 720 ml 350 ml 100 ml 960 ml IV Total 400 ml Output Urine Total 775 ml 2275 ml 1150 ml 600 ml 1320 ml 200 ml # Bowel Movements 1 0 1 Result Diagram: 09/01/16 0440 09/03/16 0608 Objective Remarks GENERAL: WBWN WM NAD SKIN: Warm and dry. HEAD: Normocephalic. EYES: No scleral icterus. No injection or drainage. NECK: Supple, trachea midline. No JVD or lymphadenopathy. CARDIOVASCULAR: Regular rate and rhythm without murmurs, gallops, or rubs. RESPIRATORY: Breath sounds equal bilaterally. No accessory muscle use. GASTROINTESTINAL: Abdomen soft, non-tender, nondistended. MUSCULOSKELETAL: No cyanosis, or edema. BACK: Nontender without obvious deformity. No CVA tenderness. A/P Assessment and Plan Resp insuff Hypoxia improved PHTN Pulm Fibrosis NHL Cerebral Palsy PLAN: Supplement 02 CPAP at night and PRN Aerosol nebs Diurease SQ Lovenox Cont Abx. Chico Nam MD Sep 03, 2016 18:55
[2016-09-03] MEDS: AZITHROMYCIN INJ 500 MG in SODIUM CHLOR 0.9% 250 ML INJ 250 ML IV SCH (23:57)
[2016-09-04] VITALS (7 sets, daily range): BP systolic 102–117; BP diastolic 61–74; PULSE 95–103; RESP 17–21; TEMP 96–97.6; O2SAT 91–96
[2016-09-04] MEDS: cefTRIAXone INJ 1,000 MG in SODIUM CHLORIDE 0.9% INJ 100 ML IV SCH (02:55)
[2016-09-04] MEDS: ENOXAPARIN SODIUM 40 MG/0.4 ML SYRINGE SQ SCH (05:41)
--- NOTE | 2016-09-04 06:12 | RADRPT ---
EXAM DATE/TIME: 09/04/2016 05:26 [facility] COMPARISON: CHEST SINGLE AP, September 03, 2016, 6:12. INDICATIONS : Shortness of breath, possible pulmonary disease. MEDICAL HISTORY : Lymphoma. Cerebral Palsy SURGICAL HISTORY : None. ENCOUNTER: Subsequent ACUITY: 1 week PAIN SCORE: 0/10 LOCATION: Bilateral chest FINDINGS: Diffuse alveolar and interstitial infiltrates are again seen with moderate elevation of right hemidia phragm. There are no effusions. Cardiomegaly. CONCLUSION: No significant change has occurred. Luciano Bernstein MD on September 04, 2016 at 6:10 Board Certified Radiologist. This report was verified electronically.
[2016-09-04] MEDS: RESP: ALBUTEROL 2.5 MG/IPRATROPIUM 0.5 MG NEB (SCH) NEB ×3 (08:02→15:29)
[2016-09-04 08:09] LABS: BICARBONATE 33.5 MEQ/L (21.0-32.0); POTASSIUM 4.2 MEQ/L (3.5-5.1)
[2016-09-04] MEDS: POTASSIUM CHLORIDE 20 MEQ CONTROLLED RELEASE TAB PO SCH (08:54)
[2016-09-04] MEDS: DOCUSATE SODIUM 100 MG CAP PO SCH (08:54)
[2016-09-04] MEDS: predniSONE 20 MG TAB PO SCH (08:54)
[2016-09-04] MEDS: ASPIRIN EC 81 MG TABEC PO SCH (08:54)
[2016-09-04] MEDS: FUROSEMIDE 100 MG/10 ML VIAL IV PUSH SCH (08:59)
--- NOTE | 2016-09-04 10:21 | HHI.PR ---
Subjective Remarks insisting on d/c Objective Vitals heart reg lung course left lower lung. and wheezing abd s/nt ext no edema Vital Signs Date Time Temp Pulse Resp B/P Pulse Ox O2 Delivery O2 Flow Rate FiO2 09/04/16 08:00 96.0 95 21 117/67 91 09/04/16 04:00 96.8 99 17 113/74 91 09/04/16 00:00 97.6 95 18 113/74 91 09/03/16 21:48 92 Nasal Cannula 3.00 09/03/16 20:00 97.5 106 17 108/65 91 09/03/16 19:45 Nasal Cannula 3.00 40 09/03/16 16:00 96.4 100 21 121/65 91 09/03/16 12:00 97.0 103 20 118/70 91 09/03/16 09/03/16 09/04/16 15:00 23:00 07:00 Intake Total 960 ml 375 ml Output Total 1320 ml 2010 ml 1220 ml Balance -360 ml -2010 ml -845 ml Intake Oral 960 ml IV Total 375 ml Output Urine Total 1320 ml 2010 ml 1220 ml Result Diagram: 09/01/16 0440 09/04/16 0550 Imaging Last Impressions Chest X-Ray 08/29/16 0800 Signed Impressions: Service Date/Time: Monday, August 29, 2016 08:53 - CONCLUSION: Cardiomegaly with diffuse increased parenchymal markings consistent with CHF which is unchanged from the prior exam. Jimenez Abarca MD CT Angiography 08/29/16 0029 Signed Impressions: Service Date/Time: Monday, August 29, 2016 01:39 - CONCLUSION: 1. Negative for pulmonary embolus. 2. Moderate to severe pulmonary fibrosis with findings characteristic of usual interstitial pneumonitis. 3. Spiculated 2 cm nodule posterior segment right upper lobe with associated surrounding lung kristan. Differential diagnosis includes postsurgical change versus lung neoplasm. Recommend comparison with prior studies or further evaluation with PET scan. 4. Enlarged central pulmonary arteries characteristic of pulmonary hypertension. Hawk Roe MD Lower Extremity Ultrasound 08/29/16 0000 Signed Impressions: Service Date/Time: Monday, August 29, 2016 01:11 - CONCLUSION: Normal examination. Hawk Roe MD A/P Problem List: (1) Hypoxia Status: Acute Plan: -Pt has hx of usual interstit pulmonary fibrosis and emphesema with 2009 wedge resection of right upper and middle lobes. - Pt presented to the ED on 08/29/16 for evaluation of acute urinary retention as well as shortness of breath. - Patient reported increased SOB and productive cough, worse on day of admission - According to the ER notes, when EMS first arrived on scene, patient's pulse ox was 60% on room air. Patient was given 125 mg of Solu-Medrol as well as to breathing treatments, and pulse ox upon arrival to the emergency room was 72% on room air. Patient was placed on BiPAP with improvement in his SOB. - CXR in the ED indicated bilateral airspace consolidation especially basilar and perihilar, ddx of infiltrate vs. edema. He was given Lasix 80 mg IV x one dose and Azithromycin and Ceftriaxone IV in the ED. - CTA was negative for pulmonary embolus but noted moderate to severe pulmonary fibrosis with findings characteristic of usual interstitial pneumonitis, spiculated 2 cm nodule posterior segment right upper lobe with associated surrounding lung kristan and enlarged central pulmonary arteries characteristic of pulmonary hypertension. - Echocardiogram (08/29/16) --> EF 45-50% - CXR (08/31/16) --> increased pulmonary edema - Blood Cultures (08/29/16) --> NO growth to date acute systolic chf with hypoxic respiratory failure. pulmonary fibrosis with usual inters. fibrosis and emphesema with exacerbation. right lung nodule on CT great diuresis. down to 3lnc d/c on lasix po and needs fu bmp next week. pcp f/u. will call pcp. need pulmonary f/u dr banegas and outpt pet/ct for nodule order [facility] eval home o2. (2) Acute exacerbation of CHF (congestive heart failure) Status: Acute Plan: see above (3) Pulmonary fibrosis Status: Chronic Plan: - See above. (4) Lung nodule Status: Acute Plan: - See above. (5) Urinary retention Status: Acute Plan: - comgmt with Urology - Pt has had new onset of urinary retention. - Jenkins cath placed in ED - CT Abd/pelvis (08/30/16) --> possible bladder wall thickening - total PSA 2.6 (08/29/16) - f/u with Urology outpt, will likely need cystoscopy (6) Hx of non-Hodgkin's lymphoma Status: Resolved Plan: - Pt with a remote hx of Non-Hodgkin's lymphoma s/p chemo in 1987 and previously followed with Dr. Sotelo. (7) Hyperlipidemia Status: Chronic Plan: - Cont. home meds (8) HTN (hypertension) Status: Chronic Plan: - BP stable. Problem Qualifiers (1) Acute exacerbation of CHF (congestive heart failure): Qualified Code: I50.9 - Acute on chronic congestive heart failure, unspecified congestive heart failure type (2) Hyperlipidemia: Qualified Code: E78.5 - Hyperlipidemia, unspecified hyperlipidemia type (3) HTN (hypertension): Qualified Code: I10 - Essential hypertension Taiwo Chaparro MD Sep 04, 2016 10:21
[2016-09-04] MEDS ORDERED: POTA10TA2 PO (10:25)
[2016-09-04] MEDS ORDERED: PRED10 PO (10:25)
[2016-09-04] MEDS ORDERED: FURO1TAB60 PO (10:25)
[2016-09-04] MEDS ORDERED: ALBU.5I NEB (10:25)
[2016-09-04] MEDS ORDERED: IPRA0.02 NEB (10:25)
--- NOTE | 2016-09-04 10:26 | HHI.DCPOC ---
Discharge Care Plan Diagnosis: (1) Acute exacerbation of CHF (congestive heart failure) (2) Pulmonary fibrosis (3) Lung nodule (4) Hypoxia (5) Urinary retention (6) HTN (hypertension) (7) Hx of non-Hodgkin's lymphoma (8) Hyperlipidemia Goals to Promote Your Health * To prevent worsening of your condition and complications * To maintain your health at the optimal level Directions to Meet Your Goals Take your medications as prescribed Follow your dietary instruction Follow activity as directed Keep your appointments as scheduled Take your immunizations and boosters as scheduled If your symptoms worsen call your PCP, if no PCP go to Urgent Care Center or Emergency Room Smoking is Dangerous to Your Health. Avoid second hand smoke Call the 24-hour hour crisis hotline for domestic abuse at Taiwo Chaparro MD Sep 04, 2016 10:25
[2016-09-04] MEDS ORDERED: NEBULIZER/ADULT1 KIT (10:28)
[2016-09-04] MEDS ORDERED: OXYGENTANK NAS.CANULA (10:28)
--- NOTE | 2016-09-04 10:29 | HHI.FF ---
Face to Face Verification Diagnosis: (1) Acute exacerbation of CHF (congestive heart failure) (2) Pulmonary fibrosis (3) Lung nodule (4) COPD (chronic obstructive pulmonary disease) Physical Therapy Order: Evaluate and Treat Home Health Nursing Order: Medical education Signs/symptoms of disease process CHF education Oxygen administration education Medication education-adverse effect Nursing assessment with vital signs Instructions: check bmp on 09/08...notify Dr Gipson pcp with results. I have seen patient Jamie Singer on 09/04/16. My clinical findings support the need for the requested home health care services because: Deconditioned w/ increased weakness I certify that my clinical findings support that this patient is homebound because: Hx COPD- exertion dyspnea/weakness Poor cardiac reserve Taiwo Chaparro MD Sep 04, 2016 10:29
--- NOTE | 2016-10-06 21:37 | HHI.DS ---
Discharge Summary Admission Date Aug 29, 2016 at 02:39 Discharge Date: Sep 04, 2016 Admitting Diagnosis Sepsis, Hypoxia, Pneumonia (1) Hypoxia Diagnosis: Principal (2) Acute exacerbation of CHF (congestive heart failure) Diagnosis: Principal (3) Pulmonary fibrosis Diagnosis: Principal (4) Lung nodule Diagnosis: Secondary (5) Urinary retention Diagnosis: Secondary (6) Hx of non-Hodgkin's lymphoma Diagnosis: Secondary (7) Hyperlipidemia Diagnosis: Secondary (8) HTN (hypertension) Diagnosis: Secondary Brief History Mr. Singer is a 66 y/o male with cerebral palsy, hx of non-Hodgkin lymphoma s /p chemo in 1987, hypertension, and hyperlipidemia. He presents to emergency room from home for evaluation of acute urinary retention as well as shortness of breath. Patient reportedly had not urinated all day prior to arrival in the ED and he had a Jenkins cath placed in the ED. Patient also reported that he has been feeling short of breath and has been coughing intermittently which seemed to be worse yesterday. Patient reports that when he coughs, he brings up thick green sputum. Patient denies chest pain, reports no sick contacts. Patient reports that he has hx of lung disease after he had chemotherapy tx for his NHL. According to the ER notes, when EMS first arrived on scene, patient's pulse ox was 60% on room air. Patient was given 125 mg of Solu-Medrol as well as to breathing treatments, and pulse ox upon arrival to the emergency room was 72% on room air. Patient was placed on BiPAP with improvement in his SOB. CXR in the ED indicated bilateral airspace consolidation especially basilar and perihilar, ddx of infiltrate vs. edema. Patient was given Lasix 80 mg IV x one dose and Azithromycin and Ceftriaxone IV in the ED. CTA was negative for pulmonary embolus but noted moderate to severe pulmonary fibrosis with findings characteristic of usual interstitial pneumonitis, spiculated 2 cm nodule posterior segment right upper lobe with associated surrounding lung kristan and enlarged central pulmonary arteries characteristic of pulmonary hypertension. Pts WBC count at admission was elevated at 18.9. Blood cultures were drawn prior to antibiotics being given and are pending. Hospital Course -Pt has hx of usual interstit pulmonary fibrosis and emphesema with 2009 wedge resection of right upper and middle lobes. - Pt presented to the ED on 08/29/16 for evaluation of acute urinary retention as well as shortness of breath. - Patient reported increased SOB and productive cough, worse on day of admission - According to the ER notes, when EMS first arrived on scene, patient's pulse ox was 60% on room air. Patient was given 125 mg of Solu-Medrol as well as to breathing treatments, and pulse ox upon arrival to the emergency room was 72% on room air. Patient was placed on BiPAP with improvement in his SOB. - CXR in the ED indicated bilateral airspace consolidation especially basilar and perihilar, ddx of infiltrate vs. edema. He was given Lasix 80 mg IV x one dose and Azithromycin and Ceftriaxone IV in the ED. - CTA was negative for pulmonary embolus but noted moderate to severe pulmonary fibrosis with findings characteristic of usual interstitial pneumonitis, spiculated 2 cm nodule posterior segment right upper lobe with associated surrounding lung kristan and enlarged central pulmonary arteries characteristic of pulmonary hypertension. - Echocardiogram (08/29/16) --> EF 45-50% - CXR (08/31/16) --> increased pulmonary edema - Blood Cultures (08/29/16) --> NO growth to date --acute systolic chf with hypoxic respiratory failure. --pulmonary fibrosis with usual inters. fibrosis and emphesema with exacerbation. --right lung nodule on CT great diuresis. down to 3lnc d/c on lasix po and needs fu bmp next week. pcp f/u. will call pcp. need pulmonary f/u dr banegas and outpt pet/ct for nodule order [facility] eval home o2. Pt Condition on Discharge: Stable Discharge Disposition: Disch w/ Home Health Serv Discharge Instructions DIET: Follow Instructions for: Heart Healthy Diet Activities you can perform: Regular-No Restrictions Follow up Referrals: PCP Follow-up - [address] sanches Pulmonology - 10 Days with [place] Banegas MD New Medications: Albuterol Neb (Albuterol Neb) 2.5 Mg/0.5 Ml Neb 2.5 MG NEB Q6HR NEB Note: The Albuterol Sulfate Inhalation Solution is concentrated and must be diluted. Read complete instructions carefully before using. copd Days 30 BOX Furosemide (Lasix) 40 Mg Tab 40 MG PO BID chf #60 Ref 0 TAB Ipratropium Neb (Ipratropium Neb) 0.5 Mg/2.5 Ml Amp 0.5 MG NEB Q6HR NEB copd #120 Ref 0 NEBULE Nebulizer/Adult Mask (Nebulizer/Adult Mask) 1 Kit Kit 1 KIT .ROUTE DIRECTED Breathing Treatment #1 Ref 0 KIT Oxygen tank (Oxygen tank) 1 Ea Tank 2 LITER CHIDI.CANULA CONTINUOUS Oxygen Concentrator Portable Gaseous 2 L/min via Nasal Cannula Continuous For 99 months HYPOXEMIA PREVENTION #3 CYLINDER Potassium Chloride ER (Potassium Chloride ER) 10 Meq Tab 10 MEQ PO BID Electrolyte Replacement #60 Ref 0 TAB Prednisone (Prednisone) 10 Mg Tab 10 MG PO DIRECTED 20mg po bid x 3 days,10mg po bid x 3 days, then 10mg po daily x 4 days. copd Days 10 Ref 0 TAB Continued Medications: Aspirin (Aspirin) 81 Mg Chew 81 MG CHEW DAILY Ref 0 TAB Lovastatin (Lovastatin) 20 Mg Tab 20 MG PO DAILY Cholesterol Management #30 Ref 0 TAB Discontinued Medications: Bumetanide (Bumetanide) 0.5 Mg Tab 0.5 MG PO BID Ref 0 TAB Taiwo Chaparro MD Oct 06, 2016 21:37
== END 2016-09-04 17:50 | disposition home health service (06) | DRG 196 ==
LOC: NEPC 23:55 → NEDA 08-29 02:39 → HCIS 08-29 06:05 → HIMN 08-29 15:21 → HOCA 08-31 15:33
PROVIDERS: ADMIT Hospitalist; ATTEND Hospitalist
PROC: 0T9B70Z Drainage of Bladder with Drainage Device, Via Natural or Artificial Opening (ICD-10-PCS; principal; 2016-08-29)
PROC: 5A09457 Assistance with Respiratory Ventilation, 24-96 Consecutive Hours, Continuous Positive Airway Pressure (ICD-10-PCS; 2016-08-29)
DX: J84.10 Pulmonary fibrosis, unspecified (principal); I50.21 Acute systolic (congestive) heart failure; J96.91 Respiratory failure, unspecified with hypoxia; I27.2 Other secondary pulmonary hypertension; I48.91 Unspecified atrial fibrillation; I10 Essential (primary) hypertension; E78.5 Hyperlipidemia, unspecified; G80.9 Cerebral palsy, unspecified; R33.9 Retention of urine, unspecified; R91.1 Solitary pulmonary nodule; Z92.21 Personal history of antineoplastic chemotherapy; Z85.72 Personal history of non-Hodgkin lymphomas; Z87.01 Personal history of pneumonia (recurrent); Z87.891 Personal history of nicotine dependence
CPT/HCPCS: 36600; 51702; 71010; 71020; 71275; 74177; 80048; 80053; 80162; 81001; 82550; 82805; 83605; 83690; 83735; 83880; 84153; 84154; 84484; 85025; 85610; 85730; 87040; 87641; 87804; 93005; 93306; 93970; 94002; 94003; 94150; 94620; 94640; 94664; 94667; 94668; 96374; 96375; J0456; J0696; J1160; J1650; J1940; J2930; J7050; J7512; Q9963; Q9967